=== PATIENT | female | born 1950 | race Caucasian/White ===

== ENCOUNTER → 2024-02-14 12:33 | Outpatient (REF) | payer MEDICARE, BC, SELFPAY | LOC: SDSPAT 12:33 | PROVIDERS: ATTENDING PHYSICIAN Urology; FAMILY PHYSICIAN Family Medicine | DX: N39.41 Urge incontinence (principal); I48.0 Paroxysmal atrial fibrillation | CPT/HCPCS: 36415; 81003; 81015; 85025; 85610; 87077; 87086; 87186; 93005 ==

== ENCOUNTER 2024-02-20 06:36 | Day surgery (SDC) | payer MEDICARE, BC, SELFPAY ==
[2024-02-14 09:51] LABS: Urine Albumin Negative (Neg - Trace); Urine Bilirubin Negative (Negative); Urine Character Clear (Clear); Urine Color Yellow; Urine Glucose Negative (Negative); Urine Ketone Negative (Negative); Urine Leukocyte 2+ (Negative); Urine Nitrite Positive (Negative); Urine Occult Blood 1+ (Negative); Urine Specific Gravity 1.005 (<1.030); Urine Urobilinogen Negative (Neg - 1+)
[2024-02-14 09:54] LABS: % Basophils 0.7 % (0-2); % Eosinophils 3.1 % (0-6); % Immature Granulocytes 0.1 % (0-0.5); % Monocytes 7.7 % (1.7-9.3); % Neutrophils 61.4 % (42.2-75.2); Absolute Basophils 0.1 10^3/uL (0-0.2); Absolute Eosinophils 0.2 10^3/uL (0-0.7); Absolute Monocytes 0.6 10^3/uL (0.1-0.6); Absolute Neutrophils 4.6 10^3/uL (1.4-6.5); Hematocrit 41.3 % (37.0-47.0); Hemoglobin 13.4 g/dL (12.0-16.0); Mean Corp Hgb Conc. 32.4 g/dL (33.0-37.0); Mean Corpuscular Hgb 30.6 pg (27.0-31.0); Mean Corpuscular Volume 94.3 fL (81.0-99.0); Mean Platelet Volume 10.2 fL (7.4-10.4); Nucleated Red Blood Cells % 0 %; Platelet Count 286 10^3/uL (130-400); Red Blood Cell Count 4.38 10^6/uL (4.20-5.40); Red Cell Dist. Width 13.8 % (11.5-14.5); White Blood Cell Count 7.4 10^3/uL (4.8-10.8)
[2024-02-14 09:55] LABS: INR 1.05; PT 13.5 Sec (11.4-14.6)
[2024-02-14 10:46] LABS: Urine Bacteria Many (Negative); Urine White Cell 70-80 /HPF (0-5)
--- NOTE | 2024-02-15 14:04 | PTCARENOTE ---
Abnormal urinalysis and urine culture collected on 02/14/24; Shital at 's office was notified.
[2024-02-20] VITALS (25 sets, daily range): BP systolic 93–133; BP diastolic 47–81; BMI 33.9
[2024-02-20 08:34] LABS: Urine Albumin Negative (Neg - Trace); Urine Bilirubin Negative (Negative); Urine Character Clear (Clear); Urine Color Yellow; Urine Glucose Negative (Negative); Urine Ketone Negative (Negative); Urine Leukocyte 1+ (Negative); Urine Nitrite Negative (Negative); Urine Occult Blood Negative (Negative); Urine Urobilinogen Negative (Neg - 1+)
[2024-02-20] MEDS: NORMOSOL-R 1000 IV (08:52)
[2024-02-20 09:04] LABS: Urine Bacteria Few (Negative); Urine Squamous Cell 16-20 /LPF (Few); Urine White Cell 16-20 /HPF (0-5)
[2024-02-20 09:05] LABS: Blood Urea Nitrogen 6 mg/dl (7-17); Calcium 9.4 mg/dl (8.4-10.2); Carbon Dioxide 30 mmol/L (22-30); Chloride 101 mmol/L (98-107); Estimated Creatinine Clearance 89 ml/min; Glucose 145 mg/dl (70-99); Potassium 4.3 mmol/L (3.5-5.1); Sodium 137 mmol/L (135-145); eGFR > 60.00
--- NOTE | 2024-02-20 12:42 | SUR.PHASEI ---
Lightly dozing, vss, sara ice chips well Dandy out lunch relief
[2024-02-20] MEDS: TORADOL 15 MG IV (15:11)
--- NOTE | 2024-02-20 15:52 | HPS.HSE ---
Addendum entered and electronically signed by Markos Burns MD 02/20/24 19:55:
I personally performed a history and physical exam of the patient and discussed management with the resident. I reviewed the resident's note and agree with the documented findings and plan of care HPI/CC.
Asked to review for post op hypoxia.
Pt without distress nor she complains of SOB or CP. Her only symptoms is LARSON- bifrontal with some photophobia .Hx of remote Migraine LARSON tx symptomatically by PCP. Didnt have a flare in recent years.
Denies hx of COPD /Asthma . Was presribed inhaler in remote past during a respiratory illness. Hx of sleep apnea and was using CPAP but not muche helpful so returned it ( this was few years ago). According to she does sleep well at night and
takes naps during day time.
Remote smoker. No CAD/CHF hx.Some LE edema lately.
Hypoxia readings noted/HD stable.
Chest clear anteriorly;s1+s2 regular
BLLE edema with venous stasis changes.No acute cellulitis.
No JVD.
Asymptomatic hypoxia with out undue distress.
CXR showed low lung volumes with crowded BV markings which radiologically raises suspicion for pulm edema but pt asymptomatic. EKG without acute changes, Trop neg, and BNP normal. Doubt CHF. Will try a trail of lasix.
Check nocturnal continous pulse ox. Add ICS.
Will admit ovenight for observation.
DW and SM[employer] and went over the working dx and tx plan.
Original Note:
Family Physician
<Marshal West MD, Resident - Last Filed: 02/20/24 16:10>
-
Family Physician: Bill Rouse
Chief Complaint
<Marshal West MD, Resident - Last Filed: 02/20/24 16:10>
-
Post-op hypoxia
History of Present Illness
Thea Сергей, age 73, had a sacral interstim implanted earlier this morning. She was noted to be hypoxic in the PACU, with O2 stats in 80s on room air. Improved with O2 via NS and the hospitalist service was consulted for further evaluation. Will
keep her observation overnight.
Medical History
<Marshal West MD, Resident - Last Filed: 02/20/24 16:10>
Past Medical History
Past Medical History: Reports Other (sleep apnea, asthma, anxiety, insomnia, neuropathy, incontinence, seizure disorder, fatty liver, depression, migraines, anemia, hyperlipidemia)
Past Surgical History: Reports Other (hysterectomy, lumpectomy (benign), esophageal dilatation, cataracts)
Social History
Tobacco: Former Smoker
Alcohol: Occasional
Drug: None
Family History
Family History: Not pertinent
Allergies / Home Medications
Allergies reflects when Allergies were last updated in [facility].
Home Medications with original date entered in [facility]
Allergy/Medication List:
Allergies
Allergy/AdvReac Type Severity Reaction Status Date / Time
No Known Allergies Allergy Verified 02/20/24 08:27
Home Medications
alprazolam 2 mg tablet 2 mg PO TID 02/15/24
gabapentin 100 mg capsule 100 mg PO TID 02/15/24
quetiapine 25 mg tablet 25 mg PO TID 02/15/24
simvastatin 10 mg tablet 10 mg PO HS 02/15/24
tamsulosin 0.4 mg capsule 0.4 mg PO DAILY 02/15/24
vibegron 75 mg tablet (Gemtesa) 75 mg PO DAILY 02/15/24
vit C 250 mg-vit E 90 mg-zinc 40 mg-copper 1 [id number] capsule (PreserVision AREDS-2) 1 tab PO AMHS 02/15/24
vortioxetine 20 mg tablet (Trintellix) 20 mg PO DAILY 02/15/24
zolpidem 10 mg tablet 10 mg PO HS 02/15/24
Review of Systems
<Marshal West MD, Resident - Last Filed: 02/20/24 16:10>
-
History Source: Patient
Constitutional: Reports Other (groggy)
EENT: Reports No Symptoms
Respiratory: Reports No Symptoms
Cardiac: Reports No Symptoms
Abdomen/GI: Reports No Symptoms
: Reports No Symptoms
Musculoskeletal: Reports No Symptoms
Skin: Reports No Symptoms
Neurological: Reports No Symptoms
Endocrine: Reports No Symptoms
Hematologic/Lymphatic: Reports No Symptoms
Psych: Reports No Symptoms
Physical Exam
<Marshal West MD, Resident - Last Filed: 02/20/24 16:10>
Vital Signs
Vital Signs
Temp Pulse Resp BP Pulse Ox
97.6 F 90 12 104/62 97
02/20/24 11:05 02/20/24 15:30 02/20/24 15:30 02/20/24 15:30 02/20/24 15:30
Physical Exam
General: No Apparent Distress and Comfortable
HEENT: NormoCephalic, Anicteric, Moist mucous membranes and No Ptosis
Respiratory: Clear and Non Labored Respirations
Cardiac: S1/S2 and Regular Rhythm
GI: Soft, Non Tender and Non Distended
Genito-urinary: No costovertebral tender
Musculoskeletal: No Clubbing, No Cyanosis and No Edema
Skin: Warm, Dry and IV/Catheter Site
Neuro: Awake, Alert, Oriented and Nonfocal/grossly intact
Hematologic/Lymphatic: No Lymphadenopathy
Psych: Calm
Laboratory Results
<Marshal West MD, Resident - Last Filed: 02/20/24 16:10>
-
02/14/24 09:03
02/20/24 08:42
Laboratory Results
PT 13.5 Sec (11.4-14.6) 02/14/24 09:03
INR 1.05 02/14/24 09:03
Impression/Plan
<Marshal West MD, Resident - Last Filed: 02/20/24 16:10>
-
Impression and plan
Acute respiratory insufficiency
- O2 stats normal on 2L via NS.
- CXR shows suspected element of pulmonary edema; will check BNP.
- Etiology unclear at this time.
- Could be related to untreated sleep apnea, post-anesthesia respiratory depression, underlying asthma/COPD.
- Will observe overnight.
- Incentive spirometry.
- Wean O2 as tolerated.
Headache
Suspected history of migraines
- Never formally diagnosed or treated.
- Will try ketorolac once.
Anxiety
Depression
Insomnia
- Continue medications.
Neuropathy
- Continue gabapentin.
Hyperlipidemia
- Continue simvastatin/
Urinary retention
Overflow incontinence
Urge incontinence
Stress incontinence
- Continue medications.
DVT prophylaxis
- SCD.
Code status
- Full.
<Markos Burns MD - Last Filed: 02/20/24 19:47>
-
Impression and plan
Acute hypoxic respiratory insufficiency
- O2 stats normal on 2L via NS.
- CXR shows suspected element of pulmonary edema; will check BNP,EKG and troponin. Will give a trail of Lasix.
- Etiology unclear at this time.
- Could be related to untreated sleep apnea, post-anesthesia respiratory depression. Check continous pulse at HS.
- Will observe overnight.
- Incentive spirometry.
- Wean O2 as tolerated.
Headache
Suspected history of migraines
- Never formally diagnosed or treated.
- Will try ketorolac once.
- Surgeon notified about LARSON in case related to Interstim insertion.
Anxiety
Depression
Insomnia
- Continue medications.
Neuropathy
- Continue gabapentin.
Hyperlipidemia
- Continue simvastatin/
Urinary incontinence
- Continue medications.
DVT prophylaxis
- SCD.
Code status
- Full.
--- NOTE | 2024-02-20 18:15 | PTCARENOTE ---
1744: Patient arrived to 2S. Full head to toe assessment completed. R lower back dressing clean dry and intact. Generalized rash noted that patient stated 'has been there for a year'. Patient wearing 4L NC with SpO2 greater than 92%. Bed alarm in
place. Call griffith within reach and bed in lowest position.
[2024-02-20] MEDS: NEURONTIN 100 MG PO ×2 (18:55→21:48)
[2024-02-20] MEDS: SEROQUEL 25 MG PO ×2 (18:55→21:44)
[2024-02-20] MEDS: LASIX 40 MG IV (18:57)
[2024-02-20 19:30] LABS: NT-proBNP 450 pg/ml; Troponin I < 0.012 ng/ml
[2024-02-20] MEDS: LIPITOR 10 MG PO (21:44)
[2024-02-20] MEDS: OCUVITE SOFTGEL 1 CAP PO (21:44)
[2024-02-20] MEDS: XANAX 2 MG PO (21:46)
--- NOTE | 2024-02-21 02:15 | PTCARENOTE ---
Upon hourly rounds at approximately 0215, pt did not have nasal cannula on. Pulse ox sat in 70's. Oxygen reapplied and increased from 4L to 5L. Pt appeared anxious and increased confusion. Reoriented pt several times, within 15 minutes pt sat in the
90's and back on 4L. Will continue to monitor.
[2024-02-21 04:03] VITALS: BP 113/57
--- NOTE | 2024-02-21 07:39 | W.PN.HOSP.TC ---
Addendum entered and electronically signed by Markos Burns MD 02/21/24 16:12:
I saw and evaluated the patient. I reviewed the resident�s note and agree with findings and plan as documented in the resident�s note.
Patient with resolved hypoxia.
She is alert and oriented to place person day and the month. Apparently this morning when she got up she was little confused but that resolved very quickly. She denies any shortness of breath, chest pain, or cough.
Chest is clear to auscultation.
S1 plus S2 are regular
Lab data and imaging data reviewed.
Abdominal x-ray which was portable suggested possible pulmonary edema but clinically not correlating. Chest was clear to auscultation. BNP was normal. Troponins were negative. EKG was negative as well. No significant wt gain since recent 02/16. No
JVD .LE edema with mild chronic stasis changes was noted.
With quick resolution of hypoxia suspect this may be more post of anesthesia effects on top of possible sleep apnea. She has no nocturnal significant hypoxemia regarding to the history she has some sleep disturbance at night and daytime sleepiness
and fatigue. She has not been using her CPAP for a while now. Advised to return to her sleep doctor now and reassess for role of reinitiating CPAP.
Also advised to reeval the need of such high doses of Benzos- she apparently been taking that way from many years now.
DC home on her prior meds.
Original Note:
Today's Communication/Plan
-
- Anticipated discharge today.
Assessment / Plan
Assessment / Plan
Assessment
Thea Rushing, age 73, had a sacral interstim implanted earlier this morning. She was noted to be hypoxic in the PACU, with O2 stats in 80s on room air. Improved with O2 via NS and the hospitalist service was consulted for further evaluation. Will
keep her observation overnight.
Impression and plan
Acute respiratory insufficiency
- CXR shows suspected element of pulmonary edema.
- BNP, ECG and troponin negative.
- Etiology unclear at this time; unlikely that this is HF.
- Likely related to sleep apnea and post-anesthesia respiratory depression.
- Nocturnal O2 stable.
- Incentive spirometry.
- Weaned off O2; 95+ on RA.
Headache
Suspected history of migraines
- Never formally diagnosed or treated.
- Will try ketorolac once.
- Improved today.
Anxiety
Depression
Insomnia
- Continue medications.
Neuropathy
- Continue gabapentin.
Hyperlipidemia
- Continue simvastatin/
Urinary retention
Overflow incontinence
Urge incontinence
Stress incontinence
- Continue medications.
DVT prophylaxis
- SCD.
Code status
- Full.
Anticipated Discharge: Today
Subjective/Interval History
-
Date of Service: February 21, 2024
Objective Data
-
Labs:
Laboratory Results
02/21/24
06:00
WBC Pending
Hgb Pending
Hct Pending
Plt Count Pending
Sodium Pending
Potassium Pending
Chloride Pending
Carbon Dioxide Pending
BUN Pending
Creatinine Pending
Glucose Pending
Calcium Pending
Vital Signs:
Vital Signs
Temp Pulse Resp BP Pulse Ox
98.4 F 92 18 113/57 92
02/21/24 04:03 02/21/24 04:03 02/21/24 04:03 02/21/24 04:03 02/21/24 04:03
I&O
02/20/24 02/21/24 02/22/24
06:59 06:59 06:59
Intake Total 720 / 720
Balance 720 / 720
Review of Systems
-
History Source: Patient
Constitutional: Reports Sleep Disturbance
EENT: Reports No Symptoms Reported
Respiratory: Reports No Symptoms
Cardiac: Reports No Symptoms
Abdomen/GI: Reports No Symptoms
Breast: Reports No Symptoms
Genitourinary: Reports No Symptoms
Musculoskeletal: Reports No Symptoms
Skin: Reports No Symptoms
Neuro: Reports No Symptoms
Endocrine: Reports No Symptoms
Hematologic / Lymphatic: Reports No Symptoms
Allergy / Immunology: Reports No Symptoms
Physical Exam
-
General: No Apparent Distress and Comfortable
HEENT: Normocephalic, Atraumatic, Moist Mucous Membranes and Anicteric
Respiratory: Clear to Auscultation and Non Labored Respirations
Cardiac: Regular Rhythm and S1/S2
GI: Soft, Nontender and Nondistended
Genito-urinary: No Costovertebral Tender
Musculoskeletal: No Clubbing, No Cyanosis and No Edema
Skin: Warm, Dry and IV Access / Catheter Site
Neuro: Awake, Alert, Oriented and Nonfocal/Grossly Intact
Hematologic / Lymphatic: No Lymphadenopathy
Psych: Calm
[2024-02-21 07:41] VITALS: BP 109/63
[2024-02-21] MEDS: FLOMAX 0.4 MG PO (09:04)
[2024-02-21] MEDS: SEROQUEL 25 MG PO (09:04)
[2024-02-21] MEDS: NEURONTIN 100 MG PO (09:04)
[2024-02-21] MEDS: OCUVITE SOFTGEL 1 CAP PO (09:04)
[2024-02-21] MEDS: DETROL LA 4 MG PO (09:04)
[2024-02-21] MEDS: XANAX 2 MG PO (09:04)
[2024-02-21 09:09] LABS: % Basophils 0.9 % (0-2); % Eosinophils 3.8 % (0-6); % Immature Granulocytes 0.5 % (0-0.5); % Lymphocytes 23.8 % (20.5-51.1); % Monocytes 8.9 % (1.7-9.3); % Neutrophils 62.1 % (42.2-75.2); Absolute Basophils 0.1 10^3/uL (0-0.2); Absolute Eosinophils 0.3 10^3/uL (0-0.7); Absolute Lymphocytes 1.6 10^3/uL (1.2-3.4); Absolute Monocytes 0.6 10^3/uL (0.1-0.6); Absolute Neutrophils 4.1 10^3/uL (1.4-6.5); Hematocrit 39.4 % (37.0-47.0); Hemoglobin 12.5 g/dL (12.0-16.0); Mean Corp Hgb Conc. 31.7 g/dL (33.0-37.0); Mean Corpuscular Hgb 30.7 pg (27.0-31.0); Mean Corpuscular Volume 96.8 fL (81.0-99.0); Mean Platelet Volume 9.7 fL (7.4-10.4); Nucleated Red Blood Cells % 0 %; Platelet Count 229 10^3/uL (130-400); Red Blood Cell Count 4.07 10^6/uL (4.20-5.40); Red Cell Dist. Width 14.2 % (11.5-14.5); White Blood Cell Count 6.6 10^3/uL (4.8-10.8)
[2024-02-21 10:27] LABS: Blood Urea Nitrogen 7 mg/dl (7-17); Calcium 8.9 mg/dl (8.4-10.2); Carbon Dioxide 35 mmol/L (22-30); Chloride 100 mmol/L (98-107); Estimated Creatinine Clearance 89 ml/min; Glucose 130 mg/dl (70-99); Potassium 4.1 mmol/L (3.5-5.1); Sodium 139 mmol/L (135-145); eGFR > 60.00
--- NOTE | 2024-02-21 10:47 | CM ---
Addendum entered by Mariposa Sands RN 02/21/24 14:52:
Reviewed PT/OT recommendations of home PT/OT. Patient and spouse want to wait on having that. Discussed option of seeing PCP and having them order if needed. Patient in agreement with waiting to speak with PCP.
Original Note:
Reviewed the chart notes and spoke with the patient at the bedside. Patient currently on supplemental O2. The patient resides with her spouse in a split level home with a total of two steps to enter. The patient has in the home a cane and rolling
walker if needed. The patient reports no VN or SNF in the past. [facility] CM continues to be available to patient/family and is monitoring medical plan for needs at discharge.
Plan: Discharge to home when medically stable.
[2024-02-21 11:23] VITALS: BP 113/66
--- NOTE | 2024-02-21 13:24 | W.DCSUMMARY ---
Documented by User: Marshal West MD, Resident 02/21/24 13:44
Discharge Summary
Discharge Data
Date of Admission: 02/20/24
Date of Discharge: 02/21/24
-
Pending Results: No
Hospital Course
Primary discharge diagnosis
* Acute respiratory insufficiency
Secondary discharge diagnoses
- Post-anesthesia respiratory depression
- Sleep apnea, unspecified
- Headache disorder
- Major depression
- Generalized anxiety disorder
- Chronic insomnia
- Peripheral neuropathy
- Overflow incontinence
- Urge incontinence
- Stress incontinence
Hospital course
Thea Rushing, age 73, had a sacral interstim implanted on 02-20-24. She was noted to be hypoxic in the PACU, with O2 stats in 80s on room air. Improved with O2 via NS. Chest x-ray was suspicious for possible pulmonary edema and she received 1 dose of
furosemide. BNP, troponin, ECG and other lab work were unremarkable. She remained asymptomatic throughout this admission. Nocturnal O2 assessment was reassuring. She was weaned off the oxygen with saturation within normal limits in the morning of
02-21-24. On the day of the discharge, her vitals were within normal limits, blood work unremarkable, physical exam normal and she remained asymptomatic. Recommended outpatient evaluation for known sleep apnea; has not used a CPAP in years.
Follow-up with urology and primary as well.
Discharge Plan
-
Patient Disposition: Home (Routine Discharge)
Discharge Diagnosis/Procedures: Acute respiratory insufficiency
Condition: Good
Diet: As tolerated, Low Cholesterol and Low Sodium
Activity: With assistance and As tolerated
Driving Restrictions: As prior to admission
Bathing Restrictions: None
Blood Work: BMP in 1 week
Other Services: VN
Instructions: Sleep apnea in adults
Referrals:
Ama Meehan DO [Active] - in two weeks
Bill Rouse MD [Family Provider] -
Nikunj Alves MD [Active] - in one month (untreated sleep apnea)
Prescriptions:
Continued
quetiapine 25 mg Tablet
25 mg PO TID
simvastatin 10 mg Tablet
10 mg PO HS
tamsulosin 0.4 mg Capsule
0.4 mg PO DAILY
alprazolam 2 mg Tablet
2 mg PO TID
gabapentin 100 mg Capsule
100 mg PO TID
zolpidem 10 mg Tablet
10 mg PO HS
Trintellix 20 mg Tablet
20 mg PO DAILY
PreserVision AREDS-2 250-90-40-1 mg Capsule
1 tab PO AMHS
Gemtesa 75 mg Tablet
75 mg PO DAILY
Discharge Orders:
Discharge Patient (As Directed); Ordered 02/21/24
Ordered By: Marshal West
Discharge Date and Time
Discharge Date/Time: 02/21/24 15:48
Print Language: SLOVAK

Documented by User: Markos Burns MD 02/21/24 16:13
Discharge Summary
Discharge Data
Date of Admission: 02/20/24
Date of Discharge: 02/21/24
Hospital Course
Primary discharge diagnosis
* Acute respiratory insufficiency
Secondary discharge diagnoses
- Post-anesthesia respiratory depression
- Sleep apnea, unspecified
- Headache disorder
- Major depression
- Generalized anxiety disorder
- Chronic insomnia
- Peripheral neuropathy
- Overflow incontinence
- Urge incontinence
- Stress incontinence
Hospital course
Thea Rushing, age 73, had a sacral interstim implanted on 02-20-24. She was noted to be hypoxic in the PACU, with O2 stats in 80s on room air. Improved with O2 via NS. Chest x-ray was suspicious for possible pulmonary edema and she received 1 dose of
furosemide. BNP, troponin, ECG and other lab work were unremarkable. She remained asymptomatic throughout this admission. Nocturnal O2 assessment was reassuring. She was weaned off the oxygen with saturation within normal limits in the morning of
02-21-24. On the day of the discharge, her vitals were within normal limits, blood work unremarkable, physical exam normal and she remained asymptomatic. Recommended outpatient evaluation for known sleep apnea; has not used a CPAP in years.
Follow-up with pulmonary and primary as well.
Discharge Plan
-
Patient Disposition: Home (Routine Discharge)
Discharge Diagnosis/Procedures: Acute respiratory insufficiency
Condition: Good
Diet: As tolerated, Low Cholesterol and Low Sodium
Activity: With assistance and As tolerated
Driving Restrictions: As prior to admission
Bathing Restrictions: None
Blood Work: BMP in 1 week
Other Services: VN
Instructions: Sleep apnea in adults
Referrals:
Ama Meehan DO [Active] - in two weeks
Bill Rouse MD [Family Provider] -
Nikunj Alves MD [Active] - in one month (untreated sleep apnea)
Prescriptions:
Continued
quetiapine 25 mg Tablet
25 mg PO TID
simvastatin 10 mg Tablet
10 mg PO HS
tamsulosin 0.4 mg Capsule
0.4 mg PO DAILY
alprazolam 2 mg Tablet
2 mg PO TID
gabapentin 100 mg Capsule
100 mg PO TID
zolpidem 10 mg Tablet
10 mg PO HS
Trintellix 20 mg Tablet
20 mg PO DAILY
PreserVision AREDS-2 250-90-40-1 mg Capsule
1 tab PO AMHS
Gemtesa 75 mg Tablet
75 mg PO DAILY
Discharge Orders:
Discharge Patient (As Directed); Ordered 02/21/24
Ordered By: Marsahl West
Discharge Date and Time
Discharge Date/Time: 02/21/24 15:48
Print Language: SLOV[place]
[2024-02-21 14:41] VITALS: BP 110/70; PULSE 102; O2SAT 92
[2024-02-21 15:03] VITALS: BP 110/70; PULSE 92; O2SAT 100
== END 2024-02-21 15:48 | disposition home or self-care (01) ==
LOC: SDS 06:36
PROVIDERS: Student in an Organized Health Care Education/Training Program; ATTENDING PHYSICIAN Urology; FAMILY PHYSICIAN Family Medicine
DX: N39.490 Overflow incontinence (principal); N39.41 Urge incontinence; R33.9 Retention of urine, unspecified; N39.3 Stress incontinence (female) (male); Z79.899 Other long term (current) drug therapy; R09.02 Hypoxemia; G47.30 Sleep apnea, unspecified; Z87.891 Personal history of nicotine dependence; J45.909 Unspecified asthma, uncomplicated; G40.909 Epilepsy, unspecified, not intractable, without status epilepticus; K76.0 Fatty (change of) liver, not elsewhere classified; E78.5 Hyperlipidemia, unspecified; F32.9 Major depressive disorder, single episode, unspecified; F41.1 Generalized anxiety disorder; G62.9 Polyneuropathy, unspecified; R51.9 Headache, unspecified; F51.05 Insomnia due to other mental disorder; F51.04 Psychophysiologic insomnia
CPT/HCPCS: 64590; 64561; 36415; 71045; 72170; 76000; 80048; 81003; 81015; 83880; 84484; 85025; 85610; 87077; 87086; 87186; 93005; 94762; 97116; 97162; 97166; C1767; C1778; C1787

== ENCOUNTER → 2024-04-23 12:52 | Outpatient (REF) | payer MEDICARE, BC, SELFPAY | LOC: HWRAD 12:52 | PROVIDERS: ATTENDING PHYSICIAN Urology; FAMILY PHYSICIAN Family Medicine | DX: R33.9 Retention of urine, unspecified (principal) | CPT/HCPCS: 76770 ==

== ENCOUNTER 2024-07-04 05:06 | Inpatient (IN) | payer MEDICARE, BC, SELFPAY ==
[2024-07-03 23:14] VITALS: BP 172/76; BMI 29.6
[2024-07-03 23:18] VITALS: BP 172/76
[2024-07-04] VITALS (17 sets, daily range): BP systolic 107–172; BP diastolic 53–106; BMI 29.4
--- NOTE | 2024-07-04 00:32 | EDRN ---
RN notes pt. appears to have bitten her tongue [employer].
[2024-07-04 00:37] LABS: % Basophils 0.2 % (0-2); % Immature Granulocytes 1.8 % (0-0.5); % Lymphocytes 9.2 % (20.5-51.1); % Monocytes 7.9 % (1.7-9.3); % Neutrophils 80.9 % (42.2-75.2); Absolute Immature Granulocytes 0.2 10^3/uL (0-0.05); Absolute Lymphocytes 1.2 10^3/uL (1.2-3.4); Absolute Neutrophils 10.6 10^3/uL (1.4-6.5); Hematocrit 41.2 % (37.0-47.0); Hemoglobin 13.9 g/dL (12.0-16.0); Mean Corp Hgb Conc. 33.7 g/dL (33.0-37.0); Mean Corpuscular Hgb 29.4 pg (27.0-31.0); Mean Corpuscular Volume 87.1 fL (81.0-99.0); Mean Platelet Volume 9.9 fL (7.4-10.4); Nucleated Red Blood Cells % 0 %; Platelet Count 287 10^3/uL (130-400); Red Blood Cell Count 4.73 10^6/uL (4.20-5.40); Red Cell Dist. Width 14.2 % (11.5-14.5); Urine Albumin Trace (Neg - Trace); Urine Bilirubin Negative (Negative); Urine Character Slightly Cloudy (Clear); Urine Color Yellow; Urine Glucose Negative (Negative); Urine Ketone 1+ (Negative); Urine Leukocyte Trace (Negative); Urine Nitrite Negative (Negative); Urine Occult Blood Negative (Negative); Urine Urobilinogen Negative (Neg - 1+); Urine pH 6.5 (5.0-9.0); White Blood Cell Count 13.1 10^3/uL (4.8-10.8)
[2024-07-04 00:49] LABS: APTT 23.8 Sec (23.4-35.0); INR 1.24; PT 15.9 Sec (11.4-14.6)
[2024-07-04 00:50] LABS: Amphetamines Negative (Negative); Barbiturates Negative (Negative); Benzodiazepines Negative (Negative); Buprenorphine Negative (Negative); Cocaine Negative (Negative); Marijuana Positive (Negative); Methadone Negative (Negative); Methamphetamines Negative (Negative); Opiates Negative (Negative); Phencyclidine Negative (Negative); Tricyclic Antidepressants Negative (Negative)
[2024-07-04 00:58] LABS: ALT (SGPT) 24 U/L (0-35); AST (SGOT) 38 U/L (14-36); Acetaminophen < 10 ug/ml (10-30); Albumin 4.2 g/dl (3.5-5.0); Alkaline Phosphatase 65 U/L (38-126); Blood Urea Nitrogen 16 mg/dl (7-17); Calcium 9.3 mg/dl (8.4-10.2); Carbon Dioxide 27 mmol/L (22-30); Chloride 96 mmol/L (98-107); Estimated Creatinine Clearance 83 ml/min; Glucose 156 mg/dl (70-99); Potassium 2.8 mmol/L (3.5-5.1); Salicylate < 1.0 mg/dl (2.0-20.0); Sodium 134 mmol/L (135-145); Total Bilirubin 1.2 mg/dl (0.2-1.3); Urine Bacteria Many (Negative); eGFR > 60.00
[2024-07-04 01:03] LABS: Alcohol None Detected
--- NOTE | 2024-07-04 01:06 | ED.GENMED ---
History of Present Illness
General
Chief Complaint: Change in Mental Status
Time Seen by Provider: 07/03/24 23:22
History of Present Illness
History of Present Illness:
73-year-old female brought in by EMS for change in mental status. called EMS multiple times today for patient's confusion. They went out to the house earlier in evening and patient was not transported to the hospital due to normal mental
status. Patient does have a history of alcohol abuse. Her last drink was last week. states that her symptoms began on and progressively worsened. Tonight the symptoms became very severe so he called 911. Has not drank alcohol
since or Tuesday. Patient has had seizures due in the past. EMS called for medical command. I picked up the phone. Patient was agitated and unwilling to come to the hospital. Was incoherent and not answering questions appropriately.
wanted her to come to the hospital. She did get Ativan for agitation. She arrived cooperative and alert. She was confused. CT scan were negative for any acute processes. Stroke alert was called initially. Dr. Britt was contacted.
She did not feel that TNKase was warranted given the prolonged duration of symptoms.
If applicable-neuro sx onset
Date of onset of symptoms: 06/28/24
Date last time pt seen normal: 06/27/24
Review of Systems
Review of Systems
Allergies reviewed?: Yes
Unable to obtain full review of systems at this time due to: other (Clinical State)
Other source history: family and ambulance crew
All Other Systems: Not applicable
Constitutional: Reports no symptoms
EENT: Reports no symptoms
Respiratory: Reports no symptoms
Cardiac: Reports no symptoms
ABD/GI: Reports no symptoms
: Reports no symptoms
Musculoskeletal: Reports no symptoms
Skin: Reports no symptoms
Neurological: Reports dizzy, headache and weakness
Endocrine: Reports no symptoms
Hematologic/Lymphatic: Reports no symptoms
Psychiatric: Reports anxiety
Phy Exam
General Physical Exam
General Presentation: moderate distress
General age: appears older than age
General Skin: warm and dry
General Habitus: elderly and frail
General Mental: appears intoxicated and confused
General Hydration: appears well hydrated
ENT Exam
ENT Exam: EOMI, pharynx normal, neck supple and normocephalic
Eye Exam
Eye Exam: PERRL, cornea clear and conjunctiva normal
Cardiovascular Exam
Cardiovascular Exam: regular rate/rhythm, no edema, no murmur and normal peripheral pulses
Pulmonary Exam
Pulmonary Exam: lungs clear, no respiratory distress, no rales, no crackles, no rhonchi, no stridor, no wheezing and no cough
Gastrointestinal Exam
Gastrointestinal Exam: normal bowel sounds, non tender, soft, no organomegaly, no pulsatile mass and non distended
Neurological Exam
Neurological Exam: confused and slurred speech
NIH Stroke Score
Level of Consciousness: 1 - Arousable
LOC questions: 1-Answers one correctly
LOC Commands: 0-Performs both correctly
Best Gaze: 0-Normal
Visual Anne: 0=Normal, no visual loss
Facial palsy: 0=Normal, symmetrical
Motor - Right Arm: 0=No drift 10 seconds
Motor - Left Arm: 0=No drift 10 seconds
Motor - Right Le-No drift 5 seconds
Motor - Left Le-No drift 5 seconds
Limb Ataxia: 0-Absent
Sensation: 0-Normal
Best Language: 1-Mild aphasia
Dysarthria: 1-Mild slurring
Extinction and Inattention: 0-No abnormality
Total Score:: 4
Musculoskeletal Exam
Musculoskeletal Exam: full ROM and no edema
Skin Exam
Skin Exam: normal color, warm/dry, no rash and no petechia
Psychiatric Exam
Psychiatric Exam: labile
Scores
Withdrawal Assessment of Alcohol
Withdrawal Assessment Completed?: Yes
Nausea and Vomiting: Mild nausea with no vomiting
Tactile Disturbances: Moderately severe hallucinations
Tremor: Not visible, but can be felt fingertip to fingertip
Auditory Disturbances: Not present
Paroxysmal Sweats: Beads of sweat obvious on forehead
Visual Disturbances: Not present
Anxiety: Moderately anxious, or guarded, so anxiety is inferred
Headache, Fullness in Head: Not present
Agitation: Moderately fidgety and restless
Orientation and clouding of sensorium: Cannot do serial additions or is uncertain about date
Total CIWA Score: 19
Alcohol Withdrawal Medication Recommendation: Equal to MSAS Score 8-11. Lorazepam 1-2mg IV NOW & re-assess q1hr
Course
Orders/Labs/Results
Orders:
Orders
07/03/24 23:23
CT Facial Bones W/o Iv Contras Urgent
Comment:
Reason For Exam: bruising
CT HEAD STROKE ALERT W/o Cont Urgent
Comment:
Reason For Exam: confusion, slurring, head trauma, pos. etoh w/d
CT HEAD/NECK ANG STROKE ALERT Urgent
Comment:
Reason For Exam: confusion, slurring, head trauma, pos. etoh w/d
Bedside Glucose- Treatment ONCE
Cardiac Monitoring- Treatment ONCE
Acetaminophen Urgent
Alcohol Urgent
Complete Blood Count/With Diff Urgent
Comprehensive Metabolic Panel Urgent
Erythrocyte Sed Rate Urgent
PTT Urgent
Prothrombin Time Urgent
Salicylate Urgent
Troponin I Urgent
07/03/24 23:24
Electrocardiogram (*1) Stat
Reason for Study: Other
Other Reason for Exam: neuro symptoms
EKG- Treatment ONCE
07/03/24 23:27
Urinalysis Reflex To Culture Urgent
Date Specimen was Collected: 07/04/24
Time Specimen was Collected: 00:12
Urine Drug Abuse Screen Urgent
Date Specimen was Collected: 07/04/24
Time Specimen was Collected: 00:12
07/04/24 00:14
Urine Microscopic Reflex Cult Urgent
Urine Culture Urgent
[place] Source: U
Specimen Description:
Date Specimen was Collected: 07/04/24
Time Specimen was Collected: 00:12
07/04/24 01:04
0.9% Sodium Chloride 1000 ml [Nss] 1,000 ml Mvi, Adult [Multivitamin] 10 ml Thiamine Injection 100 mg IV 250 mls/hr
07/04/24 01:27
Lorazepam [Ativan] 2 mg IV NOW STA
07/04/24 02:00
0.9% Sodium Chloride 1000 ml [Nss] 1,000 ml Mvi, Adult [Multivitamin] 10 ml Thiamine Injection 100 mg IV 250 mls/hr
07/04/24 02:38
Piperacillin/Tazo 4.5 Gram [Zosyn] 4.5 gram in 100 ml IV NOW
07/04/24 02:39
0.9% Sodium Chloride 1000 ml [Nss] 1,000 ml IV BOLUS
07/04/24 02:59
ED Special Safety Observation ONCE
Observation level: Intermittent Observation
Comment: Pt. requires truck safety inspector, as is not redirectable and pulls at IVs/Cardiac monitoring,
which is necessary for pt.'s care.
07/04/24 03:34
Lorazepam [Ativan] 2 mg .ROUTE .STK-MED ONE
07/04/24 03:39
Lorazepam [Ativan] 2 mg IV NOW STA
07/04/24 04:02
Lactic Acid Q4H
Comment: ON ICE, CANCEL 2ND ORDER IF FIRST LACTIC ACID LEVEL <2
Blood Culture Urgent
YU[place] Source: Blood/Venous
Specimen Description:
07/04/24 04:04
Acetaminophen [Tylenol] 1,000 mg PO NOW STA
07/04/24 04:21
Admit/Transfer Patient As Directed
Co-Sign Provider:
Level of Care: Inpatient admission
Assign to:: IMU- Intermediate Care
Physician / Group: Stew
Diagnosis: Alcohol Withdrawal / Seizures
Reason for Hospitalization: Alcohol Withdrawal / Seizures
Expected length of stay greater than two midnights?: Yes
ELOS- Estimated Length of Stay in days: 3
I certify the patient meets the requirements for IP care: Yes
PRN Pain Medication Management As Directed
May give lesser potent ordered pain med per pt: Yes
preference::
Protocol:: Medication orders for pain may be administered in a
manner that supports deferring to patient preference
when the pt is:
- Requesting an ordered lesser potent pain medication.
Least to most potent pain medications are defined
as: acetaminophen < NSAID < tramadol < opioids
(morphine, oxycodone, hydromorphone).
- Requesting a lesser dose of the same medication IF
ORDERED.
- Requesting a less intrusive route of administration
if both routes are prescribed by the provider (PO <
IV).
07/04/24 04:22
Code Status As Directed
Resuscitation Status: Full Code
07/04/24 04:23
Add On- LAB Urgent
Tests Added?: Magnesium
Potassium Chloride [KCl] 40 meq 0.9% Sodium Chloride 250 ml [Nss] 250 ml IV NOW
07/04/24 04:27
COVID-19 Antigen Urgent
Source: Nasal Swab
Blood Culture Urgent
[place] Source: Blood/Venous
Specimen Description:
Influenza A+B Rapid Molecular Routine
[place] Source: Nasal Swab
Specimen Description:
07/04/24 04:36
0.9% Sodium Chloride [Nss (Preservative Free)] See Protocol IV PRN PRN
Lorazepam [Ativan] 1 mg IV Q1HPRN PRN
Lorazepam [Ativan] 1 mg PO Q2HPRN PRN
Lorazepam [Ativan] 2 mg IV Q1HPRN PRN
07/04/24 04:36
MSAS SCORE As Directed
MSAS Score 0-4: Repeat MSAS every 2 hours until 0-4 for three consecutive assessments, then every 4 hours x 48
hours.
MSAS Score 5-7: For MILD withdrawl symptoms. Repeat MSAS and RASS every 2 hours
MSAS Score 8-11: For MODERATE withdrawal symptoms. Repeat MSAS and RASS every 1 hour. Consider ICU or IMU
level of care.
MSAS Score > 11: For SEVERE withdrawal symptoms. Repeat MSAS and RASS every 1 hour. Notify provider, consider
ICU level of care.
MSAS Additional Instructions: If no improvement or no decrease in score from severe to moderate within 12
hours, consult psychiatry
MSAS Notify Provider: Notify provider if patient requires more than 10 mg of Lorazepam in eight hour period.
Neurological Checks As Directed
Frequency: q4h
07/04/24 05:40
LFT [Bllfw-[id number]] IN AM
Magnesium Routine
Comment: ADDED
Phosphorus IN AM
Troponin I Q6H
07/04/24 Breakfast
NPO
Allow oral meds: Yes
Allow clear liquids: Sips of Clears
07/04/24 06:26
Acetaminophen [Tylenol] 650 mg PO Q4HPRN PRN
CefTRIAXone [Rocephin] 1,000 mg IV Q24H
FOLic ACID [Folvite] 1 mg 0.9% Sodium Chloride 50 ml [Nss] 50 ml IV DAILYPRN
Lactated Ringers [Lr] 1,000 ml IV 100 mls/hr
Ondansetron Injectable [Zofran] 4 mg IV Q6HPRN PRN
07/04/24 06:26
Case Management Consult Once
Case Management Consult: Other
Comment: Substance abuse counseling
DIETARY CONSULT Routine
Reason for Consult: Nutrition support, possible refeeding guidelines
WOUND/OSTOMY CONSULT Routine
Reason for Consult: LE Wound
TSH Reflex To Free T4 Routine
Activity As Directed
Activity Level: Ambulate
With Assistance
EKG with chest pain [ECG as needed] As Directed
ECG as needed for:: Chest Pain
I/O [Intake/ Output] As Directed
Frequency: Per unit guidelines
Pneumatic Compression Sleeves As Directed
Type: Knee high
Precautions As Directed
Type of Precautions: Seizure
Aspiration
Vital Signs As Directed
Frequency: Per unit guidelines
Weight As Directed
Frequency: Daily
Oxygen Therapy [O2 Therapy] [RESP] Routine
Titrate/Wean O2 to maintain O2 sat greater than (%): 94
Ot Eval And Treat Routine
PT Consult [Pt Eval And Treat] Routine
Activity Level: Ambulate
With Assistance
DX Deep Vein Thrombosis Video Routine
07/04/24 08:00
FOLic ACID [Folvite] 1 mg PO DAILY
Heparin 5,000 units SC Q12
Pantoprazole [Protonix IV] 40 mg IV DAILY
Thiamine Injection 200 mg IV Q8
07/04/24 10:38
Troponin I Q6H
07/04/24 16:00
Phenobarbital Sodium [Phenobarbital] 97.5 mg IV TID
07/04/24 16:38
Troponin I Q6H
07/05/24 06:00
EKG [Electrocardiogram (*1)] IN AM
Reason for Study: Chest Pain
Basic Metabolic Panel IN AM
Complete Blood Count/No Diff IN AM
07/06/24 16:00
Phenobarbital [Luminal] 64.8 mg PO TID
07/07/24 08:00
Thiamine HCl [Vitamin B1] 100 mg PO BID
07/08/24 16:00
Phenobarbital [Luminal] 32.4 mg PO TID
Abnormal Lab Results
07/04/24
00:14
WBC 13.1 H 10^3/uL
(4.8-10.8)
Abs Immat Gran (auto) 0.2 H 10^3/uL
(0-0.05)
Absolute Neuts (auto) 10.6 H 10^3/uL
(1.4-6.5)
Absolute Monos (auto) 1.0 H 10^3/uL
(0.1-0.6)
Immature Gran % 1.8 H %
(0-0.5)
Neutrophils % 80.9 H %
(42.2-75.2)
Lymphocytes % 9.2 L %
(20.5-51.1)
PT 15.9 H Sec
(11.4-14.6)
Sodium 134 L mmol/L
(135-145)
Potassium 2.8 L mmol/L
(3.5-5.1)
Chloride 96 L mmol/L
(98-107)
Glucose 156 H mg/dl
(70-99)
AST 38 H U/L
(14-36)
Urine Ketones 1+ A
(Negative)
Leukocyte Esterase Rfl Trace A
(Negative)
Urine WBC (Reflex) 11-15 A /HPF
(0-5)
Urine Bacteria (Reflex) Many A
(Negative)
Salicylates < 1.0 L mg/dl
(2.0-20.0)
Acetaminophen < 10 L ug/ml
(10-30)
U Marijuana (THC) Screen Positive H
(Negative)
07/04/24 00:14
07/04/24 00:14
Vital Signs
Initial and Last Documented VS:
Initial Vital Signs
Temp Pulse Resp BP Pulse Ox
98.2 F 103 18 172/76 95
07/03/24 23:14 07/03/24 23:14 07/03/24 23:14 07/03/24 23:14 07/03/24 23:14
Last Documented Vital Signs
Temp Pulse Resp BP Pulse Ox
100.7 F H 99 16 152/90 97
07/04/24 04:02 07/04/24 06:17 07/04/24 06:17 07/04/24 06:17 07/04/24 06:50
*Critical Care Note
Total Time (30-74mins, 75-104mins- exclusive of procedures): 40 (Critical care statement: A total of 40 minutes of critical care time was provided for this patient. This time is separate from time utilized to perform the aforementioned documented
procedures. Aggregate critical care time includes only time during which I was engaged in work directl)
Data Reviewed
Review of Other/Old Records Reveals: Labs and Records
Source: patient, family and ambulance crew
Patient Management
Social determinants of health affecting care: Living situation, Substance abuse and Poor social support
Discussion with other providers: Division Sales Manager (Neurology)
Update Note
Update Note:
CT FACE, CTA HEAD, CTA NECK
IMPRESSION:
FACE:
Mild motion degradation limits evaluation
No facial fracture. No evidence of orbital injury.
CTA HEAD:
No large vessel occlusion or critical stenosis within the anterior or posterior circulation.
CTA NECK:
No large vessel occlusion or critical stenosis within the anterior or posterior circulation.
Enlarged main pulmonary artery measuring up to 3.6 cm
Case finalized on Jul 04 2024 12:27AM ET
CT HEAD
IMPRESSION:
No acute hemorrhage, herniation, or hydrocephalus.
No calvarial fracture.
The visualized paranasal sinuses and mastoid air cells are clear.
ED Attending Note
-
Portions of this chart may have been created with voice recognition software.� Occasional wrong word or��sound alike� substitutions may have occurred due to the inherent limitations of voice recognition software.
Discharge Plan
Departure
Patient Disposition: Admit
Date of Disposition: 07/04/24
Time of Disposition: 02:49
Presentation/result/management discussed w/ accepting MD/DO: Hospitalist
Discharge Problem:
Altered mental status, Urinary tract infection, Alcohol withdrawal delirium
Interventions
Interventions:
*Risk Screen - Suicide Last Done: 07/04/24 06:20
*General Assessment Last Done: 07/03/24 23:14
*Neglect/Abuse Screening Last Done: 07/03/24 23:14
ED- Fall Risk Assessment Last Done: 07/04/24 06:00
*ED COVID-19 Vaccine History Last Done: 07/04/24 05:20
*Nursing Disposition Last Done: 07/04/24 06:00
ED-Psychological Assessment Last Done: 07/04/24 00:40
ED- Neurological Assessment Last Done: 07/03/24 23:51
ED Swallowing Screen Last Done: 07/04/24 02:26
Discharge Date and Time
Discharge Date/Time: 07/04/24 06:20
[2024-07-04 01:10] LABS: Erythrocyte Sed Rate 20 mm/hour (0-20)
[2024-07-04 01:22] LABS: Urine Amorphous Seen
[2024-07-04] MEDS: ATIVAN 2 MG IV ×3 (01:34→05:28)
[2024-07-04] MEDS: MULTIVITAMIN 1011 ML IV (02:21)
[2024-07-04] MEDS: MULTIVITAMIN 1011 MG IV (02:21)
[2024-07-04] MEDS: NSS 1000 IV (02:45)
[2024-07-04] MEDS: ZOSYN 100 IV (02:46)
--- NOTE | 2024-07-04 02:58 | EDRN ---
Pt. remains confused to situation and time, consistently pulling at monitor/IV's despite constant redirection. Mental status remains unchanged s/p ativan injection. 1:1 sitter to bedside.
[2024-07-04] MEDS: TYLENOL 1000 MG PO (04:21)
--- NOTE | 2024-07-04 04:27 | HPS.HSE ---
Family Physician
-
Family Physician: INTERVIEWE UNKNOWN - PT NOT
Chief Complaint
-
Seizure Activity / Confusion
History of Present Illness
Patient is a 73y F with PMH significant for alcohol use disorder and chronic pain who presents to ED via EMS for witnessed seizures at home. History obtained entirely from ED staff. Patient is confused / disoriented and unable to contribute to
history. Attempted to reach via phone without success.
Patient reportedly has history of heavy alcohol consumption - ? daily amount. ? last drink. No details are known.
reportedly stated that patient had been confused for the past week or so at home.
This evening she had shaking / seizure activity which prompted him to call 911. Apparently, patient was oriented enough to refuse ED evaluation at that time.
A short time later, she had another witnessed episode and 911 was called again. Patient was brought to the ED for further evaluation.
In the ED, patient is awake and interactive - but evidently confused. She is intermittently pulling at medical devices and appears to be disoriented.
Medical History
Past Medical History
Past Medical History: Reports Other
Additional Past Medical History:
Anxiety / depression
Peripheral Neuropathy
Chronic Pain Syndrome
Migraine Headaches
Past Surgical History: Reports Other
Additional Past Surgical History:
Sacral Interstim Implant
Hysterectomy
Lumpectomy (benign)
EGD / Esophageal Dilation
Cataracts
Social History
Unable to obtain full social history at this time due to: Other (Delirium)
Family History
Family History: Unable to Obtain
Allergies / Home Medications
Allergies reflects when Allergies were last updated in [facility].
Home Medications with original date entered in [facility]
Allergy/Medication List:
Unable to confirm current medications.
If medication reconciliation has not been performed, why?: Dementia (Delirium)
Review of Systems
-
Unable to obtain full review of systems at this time due to: Other (Delirium)
Physical Exam
Vital Signs
Vital Signs
Temp Pulse Resp BP Pulse Ox
100.7 F H 101 26 160/95 95
07/04/24 04:02 24 03:15 07/04/24 03:15 07/04/24 03:00 07/04/24 03:15
Physical Exam
General: Other (73y F in no acute distress. Restless / agitated at times. Pulling at monitor, IV sites, etc.)
HEENT: Other (Dry MM. Neck supple.)
Respiratory: Clear; No Wheezes, Rales or Rhonchi
Cardiac: S1/S2 and Tachycardia; No Murmur
GI: Soft, Non Tender, Non Distended and Normal Bowel Sounds
Musculoskeletal: No Clubbing and No Cyanosis
Skin: Other (Erythema an increased warmth b/l LEs. Crusted / scabbed lesion R anterior schmidt.)
Neuro: Awake; No Oriented
Psych: Confused, Agitated and Anxious
Laboratory Results
-
07/04/24 00:14
07/04/24 00:14
Laboratory Results
PT 15.9 Sec (11.4-14.6) H 07/04/24 00:14
INR 1.24 07/04/24 00:14
APTT 23.8 Sec (23.4-35.0) 07/04/24 00:14
Total Bilirubin 1.2 mg/dl (0.2-1.3) 07/04/24 00:14
AST 38 U/L (14-36) H 07/04/24 00:14
ALT 24 U/L (0-35) 07/04/24 00:14
Alkaline Phosphatase 65 U/L (38-126) 07/04/24 00:14
Troponin I 0.030 ng/ml 07/04/24 00:14
Impression/Plan
-
A/P: Patient is a 73y F with PMH significant for alcohol use disorder and chronic pain who presents to ED for evaluation after two witnessed seizure episodes this evening.
Alcohol Withdrawal Syndrome
Seizure activity secondary to the above
Acute TME secondary to the above
- Admit for further evaluation and treatment.
- Given seizure and significant history will begin phenobarbital protocol.
- IV Ativan as needed for breakthrough symptoms/ recurrent seizures / etc.
- Thiamine, folate, MVI replacement, etc.
- IVF support.
- Seizure / aspiration precautions.
- Follow for clinical improvement.
Fever
- Unclear etiology. Potentially related to seizure.
- ? LE cellulitis with wound / erythema. ? UTI with suspect UA.
- Cover with IV ceftriaxone for now.
- Follow up urine culture data.
- Follow for exam changes, fever curve, new symptoms, etc.
Hypokalemia
- Likely secondary to alcohol use disorder.
- ? unwitnessed / unreported GI losses. N/V/D?
- Replace potassium. Check Mg.
- Follow labs / lytes and replete as needed.
Anxiety / Depression
- Resume usual meds after formal reconciliation in the AM.
Peripheral Neuropathy
Chronic Pain Syndrome
- s/p sacral interstim placement in February.
- Resume usual meds once formal reconciliation in the AM.
DVT Prophylaxis: Subcut Heparin
Code Status: Full
[2024-07-04 04:36] LABS: Lactic Acid 1.4 mmol/L (0.7-2.0)
[2024-07-04] MEDS: KCL 270 MEQ IV (04:52)
[2024-07-04 04:55] LABS: COVID-19 Antigen Negative (Negative)
--- NOTE | 2024-07-04 05:21 | EDRN ---
Phenobarb. requested from pharmacy.
[2024-07-04] MEDS: FLUSH (NSS) 1 FLUSH IV ×2 (05:55→18:46)
[2024-07-04 06:29] LABS: ALT (SGPT) 23 U/L (0-35); AST (SGOT) 37 U/L (14-36); Albumin 3.8 g/dl (3.5-5.0); Alkaline Phosphatase 58 U/L (38-126); Direct Bilirubin 0.5 mg/dl (0.0-0.4); Magnesium 1.9 mg/dl (1.6-2.3); Phosphorus 2.8 mg/dl (2.5-4.5); Total Bilirubin 1.6 mg/dl (0.2-1.3); Total Protein 6.5 g/dl (6.3-8.2)
[2024-07-04 06:41] LABS: Troponin I 0.049 ng/ml
[2024-07-04] MEDS: PHENOBARBITAL 104 MG IV (06:41)
[2024-07-04] MEDS: ROCEPHIN 1000 MG IV (06:46)
[2024-07-04] MEDS: STERILE WATER FOR INJECTION 10 ML IV (06:46)
[2024-07-04] MEDS: LR 1000 IV ×2 (07:27→16:31)
[2024-07-04] MEDS: ATIVAN 1 MG IV ×2 (07:35→11:22)
[2024-07-04] MEDS: NSS (PRESERVATIVE FREE) 10 ML IV (07:35)
[2024-07-04] MEDS: PROTONIX IV 40 MG IV (07:35)
--- NOTE | 2024-07-04 07:35 | PTCARENOTE ---
Patient received from weight shifter. Patient resting comfortably in bed. AAO mostly to self, VSS. No complaints of pain at this time. Currently on MSAS with AM MSAS of 9. IVF to be started after K-rider and Phenobarb finishes. 1:1 with patient
to maintain IV access and patient safety as patient continually attempts to get out of bed. No tests scheduled for today. Call griffith in reach.
[2024-07-04] MEDS: FOLVITE 1 MG PO (07:36)
[2024-07-04] MEDS: HEPARIN 5000 UNITS SC ×2 (07:36→19:53)
[2024-07-04] MEDS: NSS (PRESERVATIVE FREE) 0.5 ML IV (07:36)
[2024-07-04] MEDS: THIAMINE INJECTION 200 MG IV ×2 (07:37→16:30)
--- NOTE | 2024-07-04 09:18 | W.PN.HOSP.TC ---
Today's Communication/Plan
-
Alcohol withdrawal protocol.
Assessment / Plan
Assessment / Plan
Physical Exam
General: Other (73y F in no acute distress. Restless / agitated at times. Pulling at monitor, IV sites, etc.)
HEENT: Other (Dry MM. Neck supple.)
Respiratory: Clear; No Wheezes, Rales or Rhonchi
Cardiac: S1/S2 and Tachycardia; No Murmur
GI: Soft, Non Tender, Non Distended and Normal Bowel Sounds
Musculoskeletal: No Clubbing and No Cyanosis
Skin: Other (Erythema an increased warmth b/l LEs. Crusted / scabbed lesion R anterior schmidt.)
Neuro: Awake; No Oriented
Psych: Confused, Agitated and Anxious
A/P:
Alcohol Withdrawal Syndrome
Seizure activity secondary to the above
Acute TME secondary to the above
- Admit for further evaluation and treatment.
- Given seizure and significant history will begin phenobarbital protocol.
- IV Ativan as needed for breakthrough symptoms/ recurrent seizures / etc.
- Thiamine, folate, MVI replacement, etc.
- IVF support.
- Seizure / aspiration precautions.
- Follow for clinical improvement.
Fever
- Unclear etiology. Potentially related to seizure.
- ? LE cellulitis with wound / erythema. ? UTI with suspect UA.
- Cover with IV ceftriaxone for now. Low threshold to discontinue if cultures remain negative.
- Follow up urine culture data.
- Follow for exam changes, fever curve, new symptoms, etc.
Hypokalemia
- Likely secondary to alcohol use disorder.
- ? unwitnessed / unreported GI losses. N/V/D?
- Replace potassium. Check Mg.
- Follow labs / lytes and replete as needed.
Anxiety / Depression
- Resume usual meds after formal reconciliation in the AM.
Peripheral Neuropathy
Chronic Pain Syndrome
- s/p sacral interstim placement in February.
- Resume usual meds once formal reconciliation in the AM.
DVT Prophylaxis: Subcut Heparin
Code Status: Full
Anticipated Discharge: > 48 hours
Subjective/Interval History
-
Date of Service: July 04, 2024
Patient still encephalopathic
Objective Data
-
Labs:
Laboratory Results
07/04/24 07/04/24
00:14 05:40
WBC 13.1 H
Hgb 13.9
Hct 41.2
Plt Count 287
PT 15.9 H
INR 1.24
APTT 23.8
Sodium 134 L
Potassium 2.8 L
Chloride 96 L
Carbon Dioxide 27
BUN 16
Creatinine 0.7
Glucose 156 H
Calcium 9.3
Total Bilirubin 1.2 1.6 H
AST 38 H 37 H
ALT 24 23
Alkaline Phosphatase 65 58
Vital Signs:
Vital Signs
Temp Pulse Resp BP Pulse Ox
98.6 F 99 16 152/90 97
07/04/24 08:32 07/04/24 06:17 07/04/24 06:17 07/04/24 06:17 07/04/24 06:50
[2024-07-04] MEDS: ATIVAN 1 MG PO (09:23)
[2024-07-04 11:01] LABS: TSH Reflex To Free T4 0.99 uIU/ml (0.47-4.68)
[2024-07-04 11:05] LABS: Troponin I 0.035 ng/ml
[2024-07-04] MEDS: NSS (PRESERVATIVE FREE) 1 ML IV (11:23)
--- NOTE | 2024-07-04 13:18 | WOUNDNOTE ---
WOC RN NOTE: Reviewed chart, spoke to nurse and assessed patients lower extremities. Patient has a scabbed abrasion of left LE. Hospitalist contacted and consult cancelled. RN Ruiz updated.
--- NOTE | 2024-07-04 13:20 | WOUNDNOTE ---
WOC RN NOTE: Patient consulted for right great toe wound. Pictures taken. No open wound at this time so need for local wound care. Podiatry to follow.
--- NOTE | 2024-07-04 15:40 | CM ---
Patient confused; Initial assessment and CM Consult completed with patient's via phone
Pharmacy verified: [facility] @ [address] [place] [address]
did not know name of Family Physician; but will attempt to find out and provide information to care team when available
reported that he and patient live in a multilevel home; 2 steps to enter; 12 steps between floors; inside railing on stairs; powder room 1st floor; 2nd floor bath has tub w/shower; installed a temporary grab bar
PLOF: reported that patient ambulates with a cane; independent with her personal care; manages other ADLs; patient does not drive
No recent SNF or home health utilization
will provide transport
ETOH counseling discussed; agreeable to having [facility] counselor meet with his when condition and mental status is improved; referral sent to [facility] liaison via voice mail
Discharge Plan: Case Management will monitor and support coordination of disposition needs when determined
[2024-07-04] MEDS: DESENEX/MITRAZOL/ZEASORB 1 APPLIC TOPICAL ×2 (16:29→19:53)
[2024-07-04] MEDS: PHENOBARBITAL 97.5 MG IV ×2 (16:30→22:02)
[2024-07-05] VITALS (15 sets, daily range): BP systolic 116–153; BP diastolic 59–89; PULSE 74–78; O2SAT 94–96; BMI 29.9
[2024-07-05] MEDS: THIAMINE INJECTION 200 MG IV ×3 (00:14→16:15)
--- NOTE | 2024-07-05 01:21 | PTCARENOTE ---
assumed care of patient from previous RN. Patient is orientated to self, confused and drowsy. MSAS scores have been below 5 since this RN shift. Bladder scan for 595, straight cath for 600ml. Lr running at 100 in right wrist IV. PCT in room with
patient as 1:1. NSR on monitor and on room air sating at 95. Patient has been sleeping most of shift but is arousable. Call griffith in reach. Assessment and VS as documented.
--- NOTE | 2024-07-05 01:59 | PTCARENOTE ---
patient desating overnight into mid to low 80s while sleeping, placed on 2L NC. Now sating at 98%.
[2024-07-05] MEDS: LR 1000 IV (03:07)
[2024-07-05 04:49] LABS: % Basophils 0.9 % (0-2); % Eosinophils 2.7 % (0-6); % Immature Granulocytes 0.3 % (0-0.5); % Lymphocytes 29.2 % (20.5-51.1); % Monocytes 8.9 % (1.7-9.3); Absolute Basophils 0.1 10^3/uL (0-0.2); Absolute Eosinophils 0.3 10^3/uL (0-0.7); Absolute Lymphocytes 2.7 10^3/uL (1.2-3.4); Absolute Monocytes 0.8 10^3/uL (0.1-0.6); Absolute Neutrophils 5.3 10^3/uL (1.4-6.5); Hemoglobin 11.7 g/dL (12.0-16.0); Mean Corp Hgb Conc. 32.5 g/dL (33.0-37.0); Mean Corpuscular Hgb 29.1 pg (27.0-31.0); Mean Corpuscular Volume 89.6 fL (81.0-99.0); Mean Platelet Volume 9.9 fL (7.4-10.4); Nucleated Red Blood Cells % 0 %; Platelet Count 232 10^3/uL (130-400); Red Blood Cell Count 4.02 10^6/uL (4.20-5.40); Red Cell Dist. Width 14.3 % (11.5-14.5); White Blood Cell Count 9.2 10^3/uL (4.8-10.8)
[2024-07-05 05:05] LABS: ALT (SGPT) 22 U/L (0-35); AST (SGOT) 33 U/L (14-36); Albumin 3.3 g/dl (3.5-5.0); Alkaline Phosphatase 46 U/L (38-126); Blood Urea Nitrogen 11 mg/dl (7-17); Calcium 8.6 mg/dl (8.4-10.2); Carbon Dioxide 28 mmol/L (22-30); Chloride 102 mmol/L (98-107); Estimated Creatinine Clearance 97 ml/min; Glucose 91 mg/dl (70-99); Sodium 137 mmol/L (135-145); Total Bilirubin 1.1 mg/dl (0.2-1.3); Total Protein 5.9 g/dl (6.3-8.2); eGFR > 60.00
[2024-07-05] MEDS: FLUSH (NSS) 1 FLUSH IV ×2 (05:28→05:35)
[2024-07-05] MEDS: STERILE WATER FOR INJECTION 10 ML IV (05:29)
[2024-07-05] MEDS: ROCEPHIN 1000 MG IV (05:29)
[2024-07-05] MEDS: KCL 270 MEQ IV (05:39)
--- NOTE | 2024-07-05 08:40 | W.PN.HOSP.TC ---
Today's Communication/Plan
-
IV antibiotics. Benzo's thiamine and folate.
Assessment / Plan
Assessment / Plan
Physical exam:
General: Acutely ill
HEENT: Normocephalic, Atraumatic and dry mucous Membranes
Respiratory: Clear to Auscultation; Negative Wheezes, Rales or Rhonchi
Cardiac: Regular Rhythm and S1/S2
GI: Soft, Nontender and Nondistended
Musculoskeletal: No Clubbing, No Cyanosis and No Edema
Neuro: Awake, Alert and Oriented, no neurological deficits. IV cough but much better than yesterday.
Psych: Calm
A/P:
Acute toxic metabolic encephalopathy:
Multifactorial including alcohol withdrawal seizures, UTI,? Benzo withdrawal.
Continue to monitor neurological status
PT OT eval
Start regular diet today
Continue IV fluids but discontinue later on if able to tolerate oral intake
UTI:
Continue IV ceftriaxone
WBC 13.1--> 9.2
Urine culture growing GNR
Alcohol withdrawal:
Continue MSA protocol
Continue phenobarbital taper
Continue thiamine and folate
Hypokalemia:
Replete and trend
Urinary retention:
She was initially retaining but she has been able to void spontaneously without requiring any urinary catheter the more she is able to move around
Rest of medical problems:
Chronic pain syndrome
Depression anxiety
Med reconciliation has not been done yet-once updated will resume her meds as appropriate.
DVT prophylaxis:
Heparin SQ
CODE STATUS:
Full code
Total time spent on today's encounter was 52 minutes which included time spent in counseling the patient/family regarding diagnosis and treatment plan as listed above, goals of care, and symptom management. Case was discussed with nursing staff,
specialists, and care coordinators/case management. All labs and imaging personally reviewed by me. Remainder the time spent in detailed review of previous records, lab data, imaging, and other medical provider documentation.
Anticipated Discharge: > 48 hours
Subjective/Interval History
-
Date of Service: July 05, 2024
Patient more alert today and coherent. She is able to answer questions appropriately today. She is not agitated.
Objective Data
-
Labs:
Laboratory Results
07/05/24
04:15
WBC 9.2
Hgb 11.7 L
Hct 36.0 L
Plt Count 232
Sodium 137
Potassium 3.0 L
Chloride 102
Carbon Dioxide 28
BUN 11
Creatinine 0.5 L
Glucose 91
Calcium 8.6
Total Bilirubin 1.1
AST 33
ALT 22
Alkaline Phosphatase 46
Vital Signs:
Vital Signs
Temp Pulse Resp BP Pulse Ox
98.6 F 61 16 140/89 98
07/05/24 07:03 07/05/24 04:45 07/05/24 04:45 07/05/24 04:00 07/05/24 04:45
I&O
07/04/24 07/05/24 07/06/24
06:59 06:59 06:59
Output Total 600 / 600 400 / 400
Balance -600 / -600 -400 / -400
[2024-07-05] MEDS: TYLENOL 650 MG PO (08:49)
[2024-07-05] MEDS: FOLVITE 1 MG PO (08:49)
[2024-07-05] MEDS: PROTONIX IV 40 MG IV (08:50)
[2024-07-05] MEDS: NSS (PRESERVATIVE FREE) 10 ML IV (08:50)
[2024-07-05] MEDS: PHENOBARBITAL 97.5 MG IV ×3 (08:51→21:59)
[2024-07-05] MEDS: DESENEX/MITRAZOL/ZEASORB 1 APPLIC TOPICAL ×2 (08:52→21:59)
[2024-07-05] MEDS: HEPARIN 5000 UNITS SC ×2 (08:52→20:31)
[2024-07-05] MEDS: KCL 40 MEQ PO (10:02)
[2024-07-05] MEDS: ZOFRAN 4 MG IV (13:39)
[2024-07-05] MEDS: LR IV (14:45)
--- NOTE | 2024-07-05 16:45 | CM ---
Patient with Hx alcohol use disorder and chronic pain with Dx witnessed seizures at home. Tox screen + THC. Room air. Receiving IV Abx, IV Phenobarb. MSAS per nursing. Medsitter in room. Per nurse assessment; confused/forgetful this am.
Spoke with RICHARD Lake; Simeon met with the patient earlier today who declined all substance abuse services.
Met with patient'; patient appeared A/O at this time. Offered VN for PT/OT; patient declined saying she expects her mobility to improve by the time she is ready to go home.
CM continuing to follow.
Plan home.
[2024-07-05 17:49] LABS: Hepatitis C Antibody Negative (Negative)
[2024-07-05] MEDS: ATIVAN 1 MG PO (17:58)
[2024-07-05] MEDS: MELATONIN 5 MG PO (21:59)
[2024-07-06] VITALS (14 sets, daily range): BP systolic 91–142; BP diastolic 51–83; PULSE 72; O2SAT 94; BMI 32.1
[2024-07-06] MEDS: THIAMINE INJECTION 200 MG IV ×3 (00:25→15:35)
[2024-07-06] MEDS: STERILE WATER FOR INJECTION 10 ML IV (05:46)
[2024-07-06] MEDS: ROCEPHIN 1000 MG IV (05:46)
[2024-07-06 06:29] LABS: % Basophils 0.8 % (0-2); % Eosinophils 3.8 % (0-6); % Immature Granulocytes 0.3 % (0-0.5); % Monocytes 9.3 % (1.7-9.3); % Neutrophils 54.8 % (42.2-75.2); Absolute Basophils 0.1 10^3/uL (0-0.2); Absolute Eosinophils 0.4 10^3/uL (0-0.7); Absolute Lymphocytes 2.8 10^3/uL (1.2-3.4); Absolute Monocytes 0.9 10^3/uL (0.1-0.6); Hematocrit 35.5 % (37.0-47.0); Hemoglobin 11.7 g/dL (12.0-16.0); Mean Corpuscular Hgb 29.3 pg (27.0-31.0); Nucleated Red Blood Cells % 0 %; Platelet Count 241 10^3/uL (130-400); Red Blood Cell Count 3.99 10^6/uL (4.20-5.40); Red Cell Dist. Width 14.2 % (11.5-14.5); White Blood Cell Count 9.1 10^3/uL (4.8-10.8)
[2024-07-06 07:11] LABS: ALT (SGPT) 22 U/L (0-35); AST (SGOT) 30 U/L (14-36); Albumin 3.1 g/dl (3.5-5.0); Alkaline Phosphatase 44 U/L (38-126); Blood Urea Nitrogen 14 mg/dl (7-17); Calcium 8.6 mg/dl (8.4-10.2); Carbon Dioxide 29 mmol/L (22-30); Chloride 102 mmol/L (98-107); Direct Bilirubin 0.2 mg/dl (0.0-0.4); Estimated Creatinine Clearance 101 ml/min; Glucose 128 mg/dl (70-99); Potassium 3.7 mmol/L (3.5-5.1); Sodium 135 mmol/L (135-145); Total Bilirubin 0.6 mg/dl (0.2-1.3); Total Protein 5.6 g/dl (6.3-8.2); eGFR > 60.00
[2024-07-06] MEDS: DESENEX/MITRAZOL/ZEASORB 1 APPLIC TOPICAL ×2 (08:13→20:55)
[2024-07-06] MEDS: HEPARIN 5000 UNITS SC ×2 (08:17→20:55)
[2024-07-06] MEDS: FOLVITE 1 MG PO (08:17)
[2024-07-06] MEDS: NSS (PRESERVATIVE FREE) 10 ML IV (08:19)
[2024-07-06] MEDS: PROTONIX IV 40 MG IV (08:19)
[2024-07-06] MEDS: PHENOBARBITAL 97.5 MG IV (08:22)
--- NOTE | 2024-07-06 09:03 | PTCARENOTE ---
Assumed care at 0700. AOx3, forgetful to situation. MSAS score=1 this AM, for reported nausea. VSS. NSR on telemetry, HR 50-70s. Assisted to bedside commode w/ assist x1-2. Difficulty voiding, bladder scan = 600ml. Straight cathed per
order/algorithm for 625ml himanshu urine. Now eating breakfast. Has bed alarm in place, and will maintain remote video monitoring.
--- NOTE | 2024-07-06 09:10 | W.PN.HOSP.TC ---
Today's Communication/Plan
-
Restart anxiolytics and antidepressant medications. Continue IV antibiotics. PT OT
Assessment / Plan
Assessment / Plan
Physical exam:
General: Acutely ill
HEENT: Normocephalic, Atraumatic and dry mucous Membranes
Respiratory: Clear to Auscultation; Negative Wheezes, Rales or Rhonchi
Cardiac: Regular Rhythm and S1/S2
GI: Soft, Nontender and Nondistended
Musculoskeletal: No Clubbing, No Cyanosis and No Edema
Neuro: Awake, Alert and Oriented, no neurological deficits. IV cough but much better than yesterday.
Psych: Calm
A/P:
Acute toxic metabolic encephalopathy:
Multifactorial including alcohol withdrawal seizures, UTI, ?Benzo withdrawal.
Continue to monitor neurological status
Continue regular diet today
Stop IV fluids
PT OT eval
UTI:
Continue IV ceftriaxone
WBC 13.1--> 9.1
Urine culture growing Klebsiella pneumonia
Alcohol withdrawal:
Continue MSA protocol
Continue phenobarbital taper
Continue thiamine and folate
Hypokalemia:
Replete and trend
Urinary retention:
She was initially retaining but she has been able to void spontaneously but now required straight catheterization x 1
Restart Flomax
Restart Gemtesa
Depression anxiety:
Restart high doses of Xanax
Restart Seroquel
Restart Trintellix
Restart melatonin and trazodone
Peripheral neuropathy:
Restart gabapentin
DVT prophylaxis:
Heparin SQ
CODE STATUS:
Full code
Med reconciliation completed some medications reordered.
Total time spent on today's encounter was 52 minutes which included time spent in counseling the patient/family regarding diagnosis and treatment plan as listed above, goals of care, and symptom management. Case was discussed with nursing staff,
specialists, and care coordinators/case management. All labs and imaging personally reviewed by me. Remainder the time spent in detailed review of previous records, lab data, imaging, and other medical provider documentation.
Anticipated Discharge: > 48 hours
Subjective/Interval History
-
Date of Service: July 06, 2024
Patient remains alert, orientation and focus on and off, no chest pain or shortness of breath.
Objective Data
-
Labs:
Laboratory Results
07/06/24
05:48
WBC 9.1
Hgb 11.7 L
Hct 35.5 L
Plt Count 241
Sodium 135
Potassium 3.7
Chloride 102
Carbon Dioxide 29
BUN 14
Creatinine 0.6
Glucose 128 H
Calcium 8.6
Total Bilirubin 0.6
AST 30
ALT 22
Alkaline Phosphatase 44
Vital Signs:
Vital Signs
Temp Pulse Resp BP Pulse Ox
98.6 F 65 20 141/81 90
07/06/24 07:23 07/06/24 09:00 07/06/24 09:00 07/06/24 08:00 07/06/24 09:00
I&O
07/05/24 07/06/24 07/07/24
06:59 06:59 06:59
Intake Total 1150 / 1150 480 / 480
Output Total 600 / 600 400 / 400 625 / 625
Balance -600 / -600 750 / 750 -145 / -145
[2024-07-06] MEDS: FLOMAX 0.4 MG PO (12:46)
--- NOTE | 2024-07-06 13:06 | PTCARENOTE ---
Per pharmacy, Trintellix and Gemtesa is non-formulary. , at bedside, made aware. Will try to bring medications in.
[2024-07-06] MEDS: ATIVAN 1 MG PO (13:14)
[2024-07-06] MEDS: SEROQUEL 25 MG PO ×2 (15:34→21:04)
[2024-07-06] MEDS: LUMINAL 64.8 MG PO ×2 (15:34→21:04)
[2024-07-06] MEDS: NEURONTIN 100 MG PO ×2 (15:34→21:04)
--- NOTE | 2024-07-06 17:22 | CM ---
Patient with Hx alcohol use disorder and chronic pain with Dx witnessed seizures at home. Tox screen + THC. Room air. Receiving IV Abx, IV Phenobarb, IV Ativan prn. MSAS per nursing. Medsitter in room. Per nurse assessment; forgetful.
Patient previously declined drug/alcohol resources/programs with [facility] yesterday.
CM continuing to follow.
Plan home.
[2024-07-06] MEDS: XANAX 2 MG PO ×2 (18:05→21:04)
[2024-07-06] MEDS: NON-FORMULARY ITEM 75 MG PO (20:55)
[2024-07-06] MEDS: DESYREL 100 MG PO (21:04)
[2024-07-06] MEDS: MELATONIN 5 MG PO (21:04)
[2024-07-06] MEDS: LIPITOR 20 MG PO (21:04)
--- NOTE | 2024-07-06 23:15 | PTCARENOTE ---
Pt received at beginning of shift resting in bed. at bedside - he brought in pt's Gemtesa which was sent down to pharmacy then back up to pt's room. AAOx2. Confused to date/time. MSAS 1. Bed alarm remains on and working. Medsitter in
room. VSS. Afebrile. SR/SBon CM rate 46-72. RA POX 92%. While asleep d/t desatting with sleep apnea pt placed on 2L NC POX 98%. Rest of assessment as documented. Pt refused HS/oral care. Also pt refusing scd's. Call griffith remains within reach. Will
continue to monitor.
[2024-07-07] VITALS (44 sets, daily range): BP systolic 75–164; BP diastolic 42–112; BMI 30.6
[2024-07-07] MEDS: THIAMINE INJECTION 200 MG IV (00:07)
[2024-07-07] MEDS: FLUSH (NSS) 1 FLUSH IV (00:07)
[2024-07-07] MEDS: NSS 500 IV ×2 (02:50→07:26)
--- NOTE | 2024-07-07 02:52 | PTCARENOTE ---
BP 84/52 map 58. SB rate 48. Pt drowsy but arousable. Hepzeba CLOTH SPONGER TT'd and order entered for 500ml bolus NS. NS infusing at this time. Will continue to monitor.
--- NOTE | 2024-07-07 05:00 | PTCARENOTE ---
No urine output for shift. Attends dry. Bladder scanned for 206. Pt denies need to void at this time. Lili MINER TT'd and made aware. Will continue to monitor.
[2024-07-07] MEDS: NSS 1000 IV ×3 (05:40→23:25)
[2024-07-07] MEDS: ROCEPHIN 1000 MG IV (05:50)
[2024-07-07] MEDS: STERILE WATER FOR INJECTION 10 ML IV (05:50)
--- NOTE | 2024-07-07 06:24 | W.PN.UPDATE ---
Update Note
Progress Note Update
RN notified [employer] patient received Seroquel, Gabapentin , Xanax, Trazodone, Melatonin, Phenobarbital at 2100. At 0215 87/45 (map 58) in SR rate 48, sleepy but arousable. IV bolus NSS 500CC given, BP 79/44 HR 50 one hour later, Bladder scan 200CC, no
urine out put. will order NSS @ 100 CC/hr
RN notified again, BP continuos to be on low 78/42 HR 50 98% 18, 97.3. Will order 500 CC IV bolus, will start IV Levophed as unsure if medications related or cardiac related as BP hasn't improved at all. VBG now. Hold psych Meds for now until
reevaluated.
[2024-07-07 06:57] LABS: Venous Blood Gas B.E. 2.8 mmol/L (-4 to +4); Venous Blood Gas HCO3 30.5 mmol/L (22-27); Venous Blood Gas O2 Sat % 99.4 %; Venous Blood Gas pCO2 62 mmHg (35-48); Venous Blood Gas pO2 179 mmHg (30-50)
[2024-07-07 07:04] LABS: Venous Blood Gas O2 Therapy RA
[2024-07-07] MEDS: LEVOPHED 250 IV (07:20)
[2024-07-07] MEDS: NSS (PRESERVATIVE FREE) 10 ML IV (07:28)
[2024-07-07] MEDS: PROTONIX IV 40 MG IV (07:28)
[2024-07-07] MEDS: HEPARIN 5000 UNITS SC ×2 (07:28→20:45)
[2024-07-07] MEDS: DESENEX/MITRAZOL/ZEASORB 1 APPLIC TOPICAL ×2 (07:29→20:45)
[2024-07-07] MEDS: LUMINAL 64.8 MG PO ×3 (09:17→20:45)
[2024-07-07] MEDS: NEURONTIN 100 MG PO ×3 (09:17→20:45)
[2024-07-07] MEDS: FLOMAX 0.4 MG PO (09:17)
[2024-07-07] MEDS: VITAMIN B1 100 MG PO ×2 (09:17→20:45)
[2024-07-07] MEDS: OCUVITE SOFTGEL 1 CAP PO (09:17)
[2024-07-07] MEDS: FOLVITE 1 MG PO (09:17)
[2024-07-07] MEDS: NON-FORMULARY ITEM 75 MG PO (09:18)
--- NOTE | 2024-07-07 10:09 | W.PN.HOSP.TC ---
Today's Communication/Plan
-
IV fluids. IV antibiotics.
Assessment / Plan
Assessment / Plan
Physical exam:
General: Acutely ill
HEENT: Normocephalic, Atraumatic and dry mucous Membranes
Respiratory: Clear to Auscultation; Negative Wheezes, Rales or Rhonchi
Cardiac: Regular Rhythm and S1/S2
GI: Soft, Nontender and Nondistended
Musculoskeletal: No Clubbing, No Cyanosis and No Edema
Neuro: Awake, Alert and Oriented, no neurological deficits.
Psych: Calm
A/P:
Hypotension:
Improved
Likely hypovolemia related rather than medications (patient with uti/etoh withdrawal/diarrhea)
Responded to IV fluid
Off pressors this morning
These medications she takes would cause metabolic encephalopathy rather than hypotension but okay to hold and restart over the next 24 to 48 hours
Continue monitor hemodynamic
Diarrhea:
C. difficile negative
Norovirus negative
Supportive care
Acute toxic metabolic encephalopathy:
Improving
Multifactorial including alcohol withdrawal seizures, UTI, ?Benzo withdrawal.
Continue to monitor neurological status
Continue regular diet today
PT OT eval
UTI:
Continue IV ceftriaxone
WBC 13.1--> 9.1
Urine culture growing Klebsiella pneumonia and culture sensitive to current antibiotic
Alcohol withdrawal:
Continue MSA protocol
Continue phenobarbital taper
Continue thiamine and folate
Hypokalemia:
Replete and trend
Urinary retention:
She was initially retaining but she has been able to void spontaneously but now required straight catheterization x 1
On Flomax
On Gemtesa
Depression anxiety:
On high doses of Xanax-on hold
On Seroquel-on hold
On Trintellix-on hold
Melatonin and trazodone-on hold
Peripheral neuropathy:
On gabapentin
DVT prophylaxis:
Heparin SQ
CODE STATUS:
Full code
Total time spent on today's encounter was 52 minutes which included time spent in counseling the patient/family regarding diagnosis and treatment plan as listed above, goals of care, and symptom management. Case was discussed with nursing staff,
specialists, and care coordinators/case management. All labs and imaging personally reviewed by me. Remainder the time spent in detailed review of previous records, lab data, imaging, and other medical provider documentation.
Anticipated Discharge: > 48 hours
Subjective/Interval History
-
Date of Service: July 07, 2024
Noticed overnight event of transient hypotension requiring pressors. Patient's blood pressure much improved today after IV fluids. Alert today and more oriented than before and overall perfusing well. Afebrile
Objective Data
-
Vital Signs:
Vital Signs
Temp Pulse Resp BP Pulse Ox
97.5 F 50 18 78/42 98
07/07/24 07:49 07/07/24 06:01 07/07/24 06:01 07/07/24 06:01 07/07/24 06:01
I&O
07/06/24 07/07/24 07/08/24
06:59 06:59 06:59
Intake Total 1150 / 1150 1700 / 1700
Output Total 400 / 400 625 / 625
Balance 750 / 750 1075 / 1075
--- NOTE | 2024-07-07 17:50 | PTCARENOTE ---
Assumed care of Pt at shift change; Very drowsy in bed, difficult to arouse. Received Levophed order to keep MAP > 65; Started at 2mcg with noted improvement after 10 minutes. Drip left on for 4 hours and weaned off - provider made aware.
Improvement in arousal and mentation as well. Will continue to monitor and assess.
[2024-07-07] MEDS: ATIVAN 1 MG PO (18:06)
[2024-07-07] MEDS: LIPITOR 20 MG PO (20:44)
[2024-07-07] MEDS: MELATONIN 5 MG PO (20:45)
[2024-07-08] VITALS (21 sets, daily range): BP systolic 112–147; BP diastolic 51–104; PULSE 76; O2SAT 96; BMI 31.3
[2024-07-08 04:50] LABS: % Eosinophils 4.5 % (0-6); % Immature Granulocytes 0.3 % (0-0.5); % Lymphocytes 28.8 % (20.5-51.1); % Monocytes 8.5 % (1.7-9.3); % Neutrophils 56.9 % (42.2-75.2); Absolute Basophils 0.1 10^3/uL (0-0.2); Absolute Eosinophils 0.3 10^3/uL (0-0.7); Absolute Monocytes 0.6 10^3/uL (0.1-0.6); Absolute Neutrophils 3.9 10^3/uL (1.4-6.5); Hematocrit 35.3 % (37.0-47.0); Hemoglobin 11.2 g/dL (12.0-16.0); Mean Corp Hgb Conc. 31.7 g/dL (33.0-37.0); Mean Corpuscular Hgb 28.8 pg (27.0-31.0); Mean Corpuscular Volume 90.7 fL (81.0-99.0); Mean Platelet Volume 10.6 fL (7.4-10.4); Nucleated Red Blood Cells % 0 %; Platelet Count 224 10^3/uL (130-400); Red Blood Cell Count 3.89 10^6/uL (4.20-5.40); Red Cell Dist. Width 14.7 % (11.5-14.5); White Blood Cell Count 6.9 10^3/uL (4.8-10.8)
[2024-07-08 05:15] LABS: Blood Urea Nitrogen 7 mg/dl (7-17); Calcium 8.5 mg/dl (8.4-10.2); Carbon Dioxide 27 mmol/L (22-30); Chloride 106 mmol/L (98-107); Estimated Creatinine Clearance 99 ml/min; Glucose 118 mg/dl (70-99); Potassium 3.7 mmol/L (3.5-5.1); Sodium 137 mmol/L (135-145); eGFR > 60.00
[2024-07-08] MEDS: ROCEPHIN 1000 MG IV (05:28)
[2024-07-08] MEDS: STERILE WATER FOR INJECTION 10 ML IV (05:28)
--- NOTE | 2024-07-08 05:39 | PTCARENOTE ---
Pt without urine output for shift. Bladder scanned this am for 491mls. Pt denies need or urge to void at this time. She is refusing to try and/or straight cath. Will continue to monitor.
[2024-07-08] MEDS: ZOFRAN 4 MG IV ×2 (07:44→13:33)
[2024-07-08] MEDS: NSS (PRESERVATIVE FREE) 10 ML IV (07:45)
[2024-07-08] MEDS: PROTONIX IV 40 MG IV (07:45)
[2024-07-08] MEDS: HEPARIN 5000 UNITS SC ×2 (07:45→21:02)
[2024-07-08] MEDS: DESENEX/MITRAZOL/ZEASORB 1 APPLIC TOPICAL ×2 (07:48→21:02)
[2024-07-08] MEDS: NEURONTIN 100 MG PO ×3 (08:28→21:03)
[2024-07-08] MEDS: OCUVITE SOFTGEL 1 CAP PO (08:28)
[2024-07-08] MEDS: VITAMIN B1 100 MG PO ×2 (08:29→21:03)
[2024-07-08] MEDS: NON-FORMULARY ITEM 75 MG PO (08:29)
[2024-07-08] MEDS: LUMINAL 64.8 MG PO (08:29)
[2024-07-08] MEDS: FLOMAX 0.4 MG PO (08:29)
[2024-07-08] MEDS: FOLVITE 1 MG PO (08:29)
--- NOTE | 2024-07-08 08:59 | W.PN.HOSP.TC ---
Today's Communication/Plan
-
IV fluids. IV antibiotics. Restart anxiolytics and antidepressants/antipsychotics
Assessment / Plan
Assessment / Plan
Physical exam:
General: Acutely ill
HEENT: Normocephalic, Atraumatic and dry mucous Membranes
Respiratory: Clear to Auscultation; Negative Wheezes, Rales or Rhonchi
Cardiac: Regular Rhythm and S1/S2
GI: Soft, Nontender and Nondistended
Musculoskeletal: No Clubbing, No Cyanosis and No Edema
Neuro: Awake, Alert and Oriented, no neurological deficits.
Psych: Calm
A/P:
Hypotension day prior but stable today:
Improved
Likely hypovolemia related rather than medications (patient with uti/etoh withdrawal/diarrhea)
Responded to IV fluid
Off pressors this morning
These medications she takes would cause metabolic encephalopathy rather than hypotension but okay to hold and restart over the next 24 to 48 hours
Continue monitor hemodynamic
Diarrhea:
C. difficile negative
Norovirus negative
Supportive care
Acute toxic metabolic encephalopathy:
Improving
Multifactorial including alcohol withdrawal seizures, UTI, ?Benzo withdrawal.
Continue to monitor neurological status
Continue regular diet today
PT OT eval
UTI:
Continue IV ceftriaxone
WBC 13.1--> 6.9
Urine culture growing Klebsiella pneumonia and culture sensitive to current antibiotic
Alcohol withdrawal:
Continue MSA protocol
Continue phenobarbital taper
Continue thiamine and folate
Hypokalemia:
Replete and trend
Urinary retention:
She was initially retaining but she has been able to void spontaneously but now required straight catheterization x 1
On Flomax
On Gemtesa
Depression anxiety:
On high doses of Xanax-will restart
On Seroquel-will restart
On Trintellix-will restart
Melatonin and trazodone-on hold
Peripheral neuropathy:
On gabapentin
DVT prophylaxis:
Heparin SQ
CODE STATUS:
Full code
Anticipated Discharge: 24 - 48 hours
Subjective/Interval History
-
Date of Service: July 08, 2024
Patient doing much better overall but feels very and she does not wants her anxiolytics back. Blood pressure stable. Afebrile
Objective Data
-
Labs:
Laboratory Results
07/08/24
04:29
WBC 6.9
Hgb 11.2 L
Hct 35.3 L
Plt Count 224
Sodium 137
Potassium 3.7
Chloride 106
Carbon Dioxide 27
BUN 7
Creatinine 0.5 L
Glucose 118 H
Calcium 8.5
Vital Signs:
Vital Signs
Temp Pulse Resp BP Pulse Ox
98.7 F 60 18 123/69 97
07/08/24 07:20 07/08/24 06:00 07/08/24 06:00 07/08/24 06:00 07/08/24 06:00
I&O
07/07/24 07/08/24 07/09/24
06:59 06:59 06:59
Intake Total 1700 / 1700 4000 / 4000
Output Total 625 / 625 1000 / 1000
Balance 1075 / 1075 3000 / 3000
[2024-07-08] MEDS: NSS 1000 IV ×2 (10:22→21:02)
[2024-07-08] MEDS: XANAX 2 MG PO ×2 (13:33→21:03)
--- NOTE | 2024-07-08 14:21 | CM ---
Patient with Hx alcohol use disorder and chronic pain with Dx witnessed seizures at home. Tox screen + THC. Room air. Receiving IV Abx. PT 07/08 recommends home v outpatient PT. OT 07/05 recommends HH. Per nurse assessment; forgetful.
Request to speak with her John; the patient lost her insurance cards - he was provided copies of cards that were scanned into chart.
He expressed concerns that patient had not filled most of her meds for about a month and she will need all her meds re-ordered at d/c. He is hoping to speak with physician about his concerns about patient's ongoing memory impairment ---> message
relayed to Dr Rubin.
says he is available to provide 24 hr supervision to patient at home.
says patient is starting to acknowledge that she has a drinking problem. He is unsure that she would want to see [facility] again.
unsure if patient will want VN at home or script for outpatient PT.
Plan offer VN or script for outpatient therapy.
Plan home.
[2024-07-08] MEDS: SEROQUEL 25 MG PO ×2 (17:11→21:03)
[2024-07-08] MEDS: LUMINAL 32.4 MG PO ×2 (17:11→21:03)
--- NOTE | 2024-07-08 18:01 | PTCARENOTE ---
Pt OOB to bathroom and sat in chair for several hours today; Pt continues to have difficulty recalling events both recent and distant - per this is a new issue. Pt also reported nausea throughout day, received Zofran PRN with some effect.
Pt and requested help with services - Tape Edge Machine Operator made aware and spoke with Pt and . AAO x 3, but confused at times. Very forgetful; SR on monitor. Will continue to monitor and assess.
[2024-07-08] MEDS: MELATONIN 5 MG PO (21:03)
[2024-07-08] MEDS: LIPITOR 20 MG PO (21:03)
--- NOTE | 2024-07-08 23:40 | PTCARENOTE ---
Assumed care of patient from previous RN. Patient is Aox3 but confused at times and very forgetful. NSR on monitor. 2L O2 overnight due to desating. OOB to bathroom with walker assist x1. Patient needs to be reminded and prompted to urinate, forgets
to go on her own. Assessment and VS as charted.
[2024-07-09] VITALS (19 sets, daily range): BP systolic 97–133; BP diastolic 51–103; BMI 31.8
--- NOTE | 2024-07-09 02:54 | PTCARENOTE ---
Bladder scanned patient at 00:00 due to no urine output, BS for 900. walked patient to bathroom where she urinated but still retained 350 ml after voiding. Bladder scanned 2 hours later per protocol and scanned for 683, walked patient to bathroom
where she tried to void but only was able to void about 90 ml. Straight cath patient for 550ml.
[2024-07-09 04:21] LABS: % Basophils 1.1 % (0-2); % Immature Granulocytes 0.3 % (0-0.5); % Lymphocytes 32.5 % (20.5-51.1); % Monocytes 9.1 % (1.7-9.3); Absolute Basophils 0.1 10^3/uL (0-0.2); Absolute Eosinophils 0.3 10^3/uL (0-0.7); Absolute Monocytes 0.6 10^3/uL (0.1-0.6); Absolute Neutrophils 3.3 10^3/uL (1.4-6.5); Hematocrit 31.2 % (37.0-47.0); Hemoglobin 10.3 g/dL (12.0-16.0); Mean Corpuscular Hgb 29.6 pg (27.0-31.0); Mean Corpuscular Volume 89.7 fL (81.0-99.0); Mean Platelet Volume 10.6 fL (7.4-10.4); Nucleated Red Blood Cells % 0 %; Platelet Count 202 10^3/uL (130-400); Red Blood Cell Count 3.48 10^6/uL (4.20-5.40); Red Cell Dist. Width 14.6 % (11.5-14.5); White Blood Cell Count 6.2 10^3/uL (4.8-10.8)
[2024-07-09] MEDS: NSS 1000 IV ×2 (04:57→15:13)
[2024-07-09 05:07] LABS: Blood Urea Nitrogen 6 mg/dl (7-17); Calcium 8.6 mg/dl (8.4-10.2); Carbon Dioxide 27 mmol/L (22-30); Chloride 108 mmol/L (98-107); Estimated Creatinine Clearance 100 ml/min; Glucose 119 mg/dl (70-99); Potassium 3.6 mmol/L (3.5-5.1); Sodium 138 mmol/L (135-145); eGFR > 60.00
[2024-07-09] MEDS: STERILE WATER FOR INJECTION 10 ML IV (05:12)
[2024-07-09] MEDS: ROCEPHIN 1000 MG IV (05:12)
[2024-07-09] MEDS: VITAMIN B1 100 MG PO ×2 (08:19→21:02)
[2024-07-09] MEDS: NEURONTIN 100 MG PO ×3 (08:19→21:02)
[2024-07-09] MEDS: XANAX 2 MG PO ×3 (08:19→21:02)
[2024-07-09] MEDS: LUMINAL 32.4 MG PO ×3 (08:19→21:02)
[2024-07-09] MEDS: FOLVITE 1 MG PO (08:19)
[2024-07-09] MEDS: NSS (PRESERVATIVE FREE) 10 ML IV (08:20)
[2024-07-09] MEDS: SEROQUEL 25 MG PO ×3 (08:20→21:02)
[2024-07-09] MEDS: OCUVITE SOFTGEL 1 CAP PO (08:20)
[2024-07-09] MEDS: PROTONIX IV 40 MG IV (08:20)
[2024-07-09] MEDS: FLOMAX 0.4 MG PO (08:20)
[2024-07-09] MEDS: DESENEX/MITRAZOL/ZEASORB 1 APPLIC TOPICAL ×2 (08:21→21:01)
[2024-07-09] MEDS: HEPARIN 5000 UNITS SC ×2 (08:21→21:02)
[2024-07-09] MEDS: NON-FORMULARY ITEM 75 MG PO (08:22)
--- NOTE | 2024-07-09 13:47 | W.PN.HOSP.TC ---
Today's Communication/Plan
-
transfer to [facility]
D/C after Phenobarb taper tomorrow
Assessment / Plan
Assessment / Plan
73yo F with PMHX of acohol abuse, urinary retention s/p spinal stimulator followed by , anxiety brought in with AMS and hypotension with UTI
A/P
#Hypotension with hypovolemic shock
most likely 2/2 dehydration with diarrhea
Initially on Pressors, latr on IVF only
Resolved
#Diarrhea
resolved
C,dif and norovirus neg
#Acute metabolic encephalopathy
Multifactorial: 2/2 dehydration, alcohol intake, UTI and multiple sedative meds
resolved
#UTI
ceftriaxone
Ucx - K.pneumonia sensitive to cephalosporins
#Alcohol abuse with withdrawal
Phenobarbital taper
Thiamine/folate
counselled on cessation
#Urinary retention
Urology consult: Rogers placed
FUrther f/u as outpatient
#chronic anemia
2/2 alcohol intake
#Anxiety/depression d/co
#Peripheral neuropathy
#HLD
cont home meds
#KEVIN
nort compliant with CPAP
Nocturnal O2 PRN
DVT ppx hep
Full code
I have spent at least 56min reviewing chart, test results, communication with family and direct patient care
Anticipated Discharge: Within 24 hours
Subjective/Interval History
-
Date of Service: July 09, 2024
Objective Data
-
Labs:
Laboratory Results
07/09/24
03:59
WBC 6.2
Hgb 10.3 L
Hct 31.2 L
Plt Count 202
Sodium 138
Potassium 3.6
Chloride 108 H
Carbon Dioxide 27
BUN 6 L
Creatinine 0.5 L
Glucose 119 H
Calcium 8.6
Vital Signs:
Vital Signs
Temp Pulse Resp BP Pulse Ox
98.2 F 58 18 124/65 94
07/09/24 11:14 07/09/24 11:00 07/09/24 11:00 07/09/24 11:00 07/09/24 13:43
I&O
07/08/24 07/09/24 07/10/24
06:59 06:59 06:59
Intake Total 4000 / 4000
Output Total 1000 / 1000 550 / 550 750 / 750
Balance 3000 / 3000 -550 / -550 -750 / -750
Review of Systems
-
History Source: Patient
All other systems: Reviewed and negative
Physical Exam
-
General: Well Developed
HEENT: Normocephalic and Atraumatic
Respiratory: Clear to Auscultation
Cardiac: Regular Rhythm
GI: Soft
Musculoskeletal: No Clubbing, No Cyanosis and No Edema
Neuro: Awake, Alert, Oriented and AO x 3
Psych: Calm
--- NOTE | 2024-07-09 16:48 | PTCARENOTE ---
Assumed care of pt from harness and bag inspector RN. Pt AAOx3. Confused & forgetful at times. NSR on hospital monitor. VSS. Rogers placed today by Urology at bedside for acute urinary retention. Assessment documented. Pt resting in bed with call griffith in reach.
Family at bedside.
[2024-07-09] MEDS: LIPITOR 20 MG PO (21:02)
[2024-07-09] MEDS: MELATONIN 5 MG PO (21:02)
--- NOTE | 2024-07-09 21:39 | PTCARENOTE ---
assumed care of patient from previous RN. Patient is Aox3 but can be confused at and is forgetful. NSR on monitor. 3L O2 overnight. Rogers placed today, draining clear pale urine. Patient resting in bed with call griffith in reach.
[2024-07-10] VITALS (19 sets, daily range): BP systolic 96–149; BP diastolic 51–102; PULSE 69; O2SAT 95; BMI 33.0
[2024-07-10] MEDS: NSS 1000 IV ×2 (01:17→12:45)
[2024-07-10] MEDS: STERILE WATER FOR INJECTION 10 ML IV (05:19)
[2024-07-10] MEDS: ROCEPHIN 1000 MG IV (05:19)
[2024-07-10] MEDS: VITAMIN B1 100 MG PO ×2 (08:34→21:52)
[2024-07-10] MEDS: FLOMAX 0.4 MG PO (08:34)
[2024-07-10] MEDS: DESENEX/MITRAZOL/ZEASORB 1 APPLIC TOPICAL ×2 (08:34→21:48)
[2024-07-10] MEDS: XANAX 2 MG PO ×3 (08:35→23:22)
[2024-07-10] MEDS: LUMINAL 32.4 MG PO (08:35)
[2024-07-10] MEDS: PROTONIX 40 MG PO (08:35)
[2024-07-10] MEDS: OCUVITE SOFTGEL 1 CAP PO (08:35)
[2024-07-10] MEDS: FOLVITE 1 MG PO (08:35)
[2024-07-10] MEDS: SEROQUEL 25 MG PO ×3 (08:35→21:50)
[2024-07-10] MEDS: NON-FORMULARY ITEM 75 MG PO (08:35)
[2024-07-10] MEDS: NEURONTIN 100 MG PO ×3 (08:35→21:50)
[2024-07-10] MEDS: HEPARIN 5000 UNITS SC ×2 (08:35→21:49)
--- NOTE | 2024-07-10 12:37 | W.PN.HOSP.TC ---
Today's Communication/Plan
-
Significant desaturation overnight, needs 3+ L NC - due to KEVIN
Nocturnal O2 study ordered as CM needs it for home O2
Assessment / Plan
Assessment / Plan
73yo F with PMHX of acohol abuse, urinary retention s/p spinal stimulator followed by , anxiety brought in with AMS and hypotension with UTI. Improved. Found significant hypoxia at night 2/2 KEVIN - pending nocturnal study and home O2 Rx
A/P
#Hypotension with hypovolemic shock
most likely 2/2 dehydration with diarrhea
Initially on Pressors, latr on IVF only
Resolved
#Diarrhea
resolved
C,dif and norovirus neg
#Acute metabolic encephalopathy
Multifactorial: 2/2 dehydration, alcohol intake, UTI and multiple sedative meds
resolved
#UTI
ceftriaxone
Ucx - K.pneumonia sensitive to cephalosporins
#Alcohol abuse with withdrawal
Phenobarbital taper completed
Thiamine/folate
counselled on cessation
#Urinary retention
Urology consult: Rogers placed
FUrther f/u as outpatient
#chronic anemia
2/2 alcohol intake
follow H&H
No over bleeding
#Anxiety/depression d/co
#Peripheral neuropathy
#HLD
cont home meds
#KEVIN with nocturnal hypoxia
Nocturnal O2 assessment for CM to start O2
nort compliant with CPAP
Nocturnal O2 PRN
DVT ppx hep
Full code
I have spent at least 56min reviewing chart, test results, communication with family and direct patient care
Anticipated Discharge: Within 24 hours
Subjective/Interval History
-
Date of Service: July 10, 2024
Objective Data
-
Vital Signs:
Vital Signs
Temp Pulse Resp BP Pulse Ox
98.1 F 55 19 122/71 100
07/10/24 11:47 12/24/24 08:00 07/10/24 08:00 07/10/24 08:00 07/10/24 08:00
I&O
07/09/24 07/10/24 07/11/24
06:59 06:59 06:59
Intake Total 480 / 480
Output Total 550 / 550 1900 / 1900
Balance -550 / -550 -1420 / -1420
Review of Systems
-
History Source: Patient
All other systems: Reviewed and negative
Physical Exam
-
General: No Apparent Distress
HEENT: Normocephalic and Atraumatic
Respiratory: Clear to Auscultation
GI: Soft, Nontender and Nondistended
Genito-urinary: No Costovertebral Tender
Musculoskeletal: No Clubbing, No Cyanosis and No Edema
Neuro: Awake, Alert, Oriented and AO x 3
Psych: Calm
--- NOTE | 2024-07-10 13:22 | PTCARENOTE ---
Pt tolerating RA with sats in the mid 90's while awake throughout the day. Monitor then alarming with sats in the high 80's. This RN to bedside, pt awake and conversing with . Denies SOB. Placed on 1L NC and sats recovered to high 90's.
--- NOTE | 2024-07-10 15:49 | CM ---
Patient with Hx alcohol use disorder and chronic pain with Dx witnessed seizures at home. Tox screen + THC. Receiving IV Abx. PT 07/08 recommends home v outpatient PT. OT 07/05 recommends HH. Per nurse assessment; forgetful, MSAS 1.
Room air.
Home O2 Assessment today, per Samaria, RT; did not qualify for O2. 91% RA rest, 94% ambulating on RA.
Nocturnal O2 study ordered.
Met with patient; she is hoping to be discharged home soon, patient aware MD ordered nocturnal O2 study for tonight. IMM completed. Discussed PT/OT recommendations; she is agreeable to a referral for VN for SN/PT/OT with [facility].
Referral placed for [facility] VN & accepted in [facility].
Plan follow up tomorrow after Nocturnal O2 study for possible home O2 needs.
Plan probable d/c tomorrow with [facility] VN, possibly with O2.
--- NOTE | 2024-07-10 17:50 | PTCARENOTE ---
Pt transferred to [id number]
[2024-07-10] MEDS: MELATONIN 5 MG PO (21:50)
[2024-07-10] MEDS: LIPITOR 20 MG PO (21:50)
[2024-07-11 03:29] VITALS: BP 117/55
[2024-07-11] MEDS: STERILE WATER FOR INJECTION 10 ML IV (05:54)
[2024-07-11] MEDS: ROCEPHIN 1000 MG IV (05:54)
[2024-07-11] MEDS: HEPARIN 5000 UNITS SC ×2 (07:57→20:21)
[2024-07-11] MEDS: PROTONIX 40 MG PO (07:59)
[2024-07-11] MEDS: NEURONTIN 100 MG PO ×3 (07:59→21:28)
[2024-07-11] MEDS: FOLVITE 1 MG PO (07:59)
[2024-07-11] MEDS: OCUVITE SOFTGEL 1 CAP PO (07:59)
[2024-07-11] MEDS: SEROQUEL 25 MG PO ×3 (08:00→21:28)
[2024-07-11] MEDS: DESENEX/MITRAZOL/ZEASORB 1 APPLIC TOPICAL ×2 (08:00→20:27)
[2024-07-11] MEDS: FLOMAX 0.4 MG PO (08:00)
[2024-07-11] MEDS: VITAMIN B1 100 MG PO ×2 (08:00→20:21)
[2024-07-11] MEDS: XANAX 2 MG PO ×3 (08:00→21:30)
[2024-07-11] MEDS: NON-FORMULARY ITEM 75 MG PO (08:01)
[2024-07-11 08:16] LABS: Hematocrit 33.5 % (37.0-47.0); Hemoglobin 10.2 g/dL (12.0-16.0)
--- NOTE | 2024-07-11 08:59 | W.PN.URO.CBU ---
Today's Communication / Plan
-
teach soto leg bag care
Assessment / Plan
-
uti resolved but retention home with soto follow up Dr Meehan for voiding trial
Diagnosis
-
Date of Service: July 11, 2024
-
Patient Diagnosis:retntion of uroine
Post Op Day:
Subjective
-
cannot void but feels better dince atival
Objective
-
Vital Signs
Temp Pulse Resp BP Pulse Ox
97.6 F 56 14 117/55 98
07/11/24 03:29 07/11/24 03:29 07/11/24 03:29 07/11/24 03:29 07/11/24 03:29
Intake and Output
07/10/24 07/11/24 07/12/24
06:59 06:59 06:59
Intake Total 480 / 480 480 / 480
Output Total 1900 / 1900 1800 / 1800
Balance -1420 / -1420 -1320 / -1320
Intake:
Oral fluids 480 / 480 480 / 480
Output:
Urine, Soto 1900 / 1900 1800 / 1800
Laboratory Results
07/11/24 07:49
07/09/24 03:59
Review of Systems
-
: Difficulty Voiding
Physical Exam
-
General - well developed, well nourished, no acute distress
Chest - clear bilaterally
Abdomen - soft, non-tender, positive bowel sounds, no CVAT, no incisional pain or distention
Genitalia - normal
Rectal - normal
Skin - warm & dry with no rash
Neuro - AOx3, no motor deficits
Extremities - no clubbing, no cyanosis, no edema
Incision - clean, dry
Dressing - clean, dry, intact
Care Review
Data Reviewed
Discussed with: Nursing
CT Scan: Image Pers Reviewed
[2024-07-11 11:00] VITALS: BP 124/56
--- NOTE | 2024-07-11 11:03 | CM ---
Patient stable for discharge; met with patient; explained that Home Oxygen and equipment needs to be ordered; vendor options identified; patient has no preference; contacted [facility] via phone; Office is closed
Nocturnal O2 Testing results on the chart; CM will fax Oxygen orders and clinicals to Oxygen Vendor tomorrow morning
Plan: Discharge to home with Home Health services from [facility] and Home Oxygen
--- NOTE | 2024-07-11 11:36 | W.PN.HOSP.TC ---
Today's Communication/Plan
-
home nocturnal O2 delivery and d/c
Stop ceftriaxone after last dose
Assessment / Plan
Assessment / Plan
73yo F with PMHX of acohol abuse, urinary retention s/p spinal stimulator followed by , anxiety brought in with AMS and hypotension with UTI. Improved. Found significant hypoxia at night 2/2 KEVIN - pending nocturnal study and home O2 Rx
A/P
#Hypotension with hypovolemic shock
most likely 2/2 dehydration with diarrhea
Initially on Pressors, latr on IVF only
Resolved
#Diarrhea
resolved
C.diff and norovirus neg
#Acute metabolic encephalopathy
Multifactorial: 2/2 dehydration, alcohol intake, UTI and multiple sedative meds
resolved
#UTI
ceftriaxone - last day 07/11/24
Ucx - K.pneumonia sensitive to cephalosporins
#Alcohol abuse with withdrawal
Phenobarbital taper completed
Thiamine/folate
counselled on cessation
#Urinary retention
Urology consult: Rogers placed
Further f/u as outpatient - known to
#chronic anemia
2/2 alcohol intake
follow H&H
No over bleeding
#Anxiety/depression d/co
#Peripheral neuropathy
#HLD
cont home meds
#KEVIN with nocturnal hypoxia
Nocturnal O2 assessment for CM to start O2
nort compliant with CPAP
Nocturnal O2 PRN
Ambulatory O2 assessment - no need for oxygen when awake at rest and on ambulation
DVT ppx hep
Full code
I have spent at least 36min reviewing chart, test results, communication with family and direct patient care
Anticipated Discharge: Within 24 hours
Subjective/Interval History
-
Date of Service: July 11, 2024
Objective Data
-
Labs:
Laboratory Results
07/11/24
07:49
Hgb 10.2 L
Hct 33.5 L
Vital Signs:
Vital Signs
Temp Pulse Resp BP Pulse Ox
97.6 F 56 14 117/55 98
07/11/24 03:29 07/11/24 03:29 07/11/24 03:29 07/11/24 03:29 07/11/24 03:29
I&O
07/10/24 07/11/24 07/12/24
06:59 06:59 06:59
Intake Total 480 / 480 480 / 480
Output Total 1900 / 1900 1800 / 1800
Balance -1420 / -1420 -1320 / -1320
Review of Systems
-
History Source: Patient
All other systems: Reviewed and negative
Physical Exam
-
General: Comfortable
HEENT: Normocephalic
Respiratory: Clear to Auscultation
GI: Soft, Nontender and Nondistended
Neuro: Awake, Alert, Oriented and AO x 3
Psych: Calm
[2024-07-11 15:00] VITALS: BP 116/77
[2024-07-11 19:54] VITALS: BP 141/63
[2024-07-11] MEDS: LIPITOR 20 MG PO (21:28)
[2024-07-11] MEDS: MELATONIN 5 MG PO (21:28)
[2024-07-11 23:30] VITALS: BP 129/59
[2024-07-11] MEDS: TYLENOL 650 MG PO (23:53)
[2024-07-12 03:30] VITALS: BP 110/51
[2024-07-12 07:30] VITALS: BP 130/62
[2024-07-12] MEDS: DESENEX/MITRAZOL/ZEASORB 1 APPLIC TOPICAL (07:53)
[2024-07-12] MEDS: HEPARIN 5000 UNITS SC (08:00)
[2024-07-12] MEDS: PROTONIX 40 MG PO (08:01)
[2024-07-12] MEDS: FLOMAX 0.4 MG PO (08:01)
[2024-07-12] MEDS: XANAX 2 MG PO ×2 (08:01→16:08)
[2024-07-12] MEDS: SEROQUEL 25 MG PO ×2 (08:01→16:08)
[2024-07-12] MEDS: VITAMIN B1 100 MG PO (08:01)
[2024-07-12] MEDS: FOLVITE 1 MG PO (08:01)
[2024-07-12] MEDS: OCUVITE SOFTGEL 1 CAP PO (08:02)
[2024-07-12] MEDS: NEURONTIN 100 MG PO ×2 (08:02→16:08)
[2024-07-12] MEDS: NON-FORMULARY ITEM 1 MG PO (08:03)
--- NOTE | 2024-07-12 09:45 | CM ---
Addendum entered by Misty Butcher 07/12/24 12:17:
Patient seen, discussed plan for discharge today, patient on phone with at time, will provide transportation home. CM discussed [facility] will call patient to schedule delivery. IMM verbally reviewed, provided with copy, placed in chart.
Original Note:
CM reviewed chart, Nocturnal O2 faxed to Kathryn at [facility]- will call patient regarding delivery, will deliver to patients home. CM will continue to follow for all discharge planning needs.
Plan; home with [facility], nocturnal O2
Sujey
--- NOTE | 2024-07-12 10:23 | W.PN.HOSP.TC ---
Today's Communication/Plan
-
mild wheezing - add symbicort, outpatient pulm for PFT
CM for home O2, when arranged - DC
Assessment / Plan
Assessment / Plan
73yo F with PMHX of acohol abuse, urinary retention s/p spinal stimulator followed by , anxiety brought in with AMS and hypotension with UTI. Improved. Found significant hypoxia at night 2/2 KEVIN - pending nocturnal study and home O2 Rx
A/P
#Hypotension with hypovolemic shock
most likely 2/2 dehydration with diarrhea
Initially on Pressors, latr on IVF only
Resolved
#Diarrhea
resolved
C.diff and norovirus neg
#Acute metabolic encephalopathy
Multifactorial: 2/2 dehydration, alcohol intake, UTI and multiple sedative meds
resolved
#UTI
ceftriaxone - last day 07/11/24
Ucx - K.pneumonia sensitive to cephalosporins
#Alcohol abuse with withdrawal
Phenobarbital taper completed
Thiamine/folate
counselled on cessation
#Urinary retention
Urology consult: Rogers placed
Further f/u as outpatient - known to
#chronic anemia
2/2 alcohol intake
follow H&H
No over bleeding
#Anxiety/depression d/co
#Peripheral neuropathy
#HLD
cont home meds
#KEVIN with COPD component and with nocturnal hypoxia
Nocturnal O2 assessment for CM to start O2
nort compliant with CPAP
Nocturnal O2 PRN
Ambulatory O2 assessment - no need for oxygen when awake at rest and on ambulation
Albuterol
DVT ppx hep
Full code
I have spent at least 36min reviewing chart, test results, communication with family and direct patient care
Anticipated Discharge: Within 24 hours
Subjective/Interval History
-
Date of Service: July 12, 2024
Objective Data
-
Vital Signs:
Vital Signs
Temp Pulse Resp BP Pulse Ox
97.6 F 58 18 130/62 99
07/12/24 07:30 07/12/24 07:30 07/12/24 07:30 07/12/24 07:30 07/12/24 07:30
I&O
07/11/24 07/12/24 07/13/24
06:59 06:59 06:59
Intake Total 480 / 480 1140 / 1140 480 / 480
Output Total 1800 / 1800 2175 / 2175 275 / 275
Balance -1320 / -1320 -1035 / -1035 205 / 205
Review of Systems
-
History Source: Patient
All other systems: Reviewed and negative
Physical Exam
-
General: No Apparent Distress
HEENT: Normocephalic
Respiratory: Wheezes
GI: Soft, Nontender and Nondistended
Neuro: Awake, Alert, Oriented and AO x 3
Psych: Calm
--- NOTE | 2024-07-12 11:01 | W.PN.URO.CBU ---
Today's Communication / Plan
-
teach ot soto leg bag care
Assessment / Plan
-
uti resolved but retention home with soto follow up Dr Meehan for voiding trial
Diagnosis
-
Date of Service: July 12, 2024
-
Patient Diagnosis:
Post Op Day:
Patient Diagnosis:retntion of uroine
Post Op Day:
Subjective
-
cannot void
Objective
-
Vital Signs
Temp Pulse Resp BP Pulse Ox
97.6 F 58 18 130/62 99
07/12/24 07:30 07/12/24 07:30 07/12/24 07:30 07/12/24 07:30 07/12/24 07:30
Intake and Output
07/11/24 07/12/24 07/13/24
06:59 06:59 06:59
Intake Total 480 / 480 1140 / 1140 480 / 480
Output Total 1800 / 1800 2175 / 2175 275 / 275
Balance -1320 / -1320 -1035 / -1035 205 / 205
Intake:
Oral fluids 480 / 480 1140 / 1140 480 / 480
Output:
Urine, Soto 1800 / 1800 2175 / 2175 275 / 275
Laboratory Results
07/11/24 07:49
07/09/24 03:59
Review of Systems
-
: Difficulty Voiding
Physical Exam
-
General - well developed, well nourished, no acute distress
Chest - clear bilaterally
Abdomen - soft, non-tender, positive bowel sounds, no CVAT, no incisional pain or distention
Genitalia - normal
Rectal - normal
Skin - warm & dry with no rash
Neuro - AOx3, no motor deficits
Extremities - no clubbing, no cyanosis, no edema
Incision - clean, dry
Dressing - clean, dry, intact
Care Review
Data Reviewed
Discussed with: Hospitalist
--- NOTE | 2024-07-12 11:16 | W.DCSUMMARY ---
Discharge Summary
Discharge Data
Date of Admission: 07/04/24
Date of Discharge: 07/12/24
-
Pending Results: No
Hospital Course
73yo F with PMHX of acohol abuse, urinary retention s/p spinal stimulator followed by , anxiety brought in with AMS and hypotension with UTI. Improved. Found significant hypoxia at night 2/2 KEVIN and COPD, CM arranged home O2. Developed
acute urinary retention, so soto was placed and patient will continue to follow with her established urologist. Mentation back to normal, normotensive, Abx completed. Medically stable for d/c home with oxygen and VN. Recommended outpatient
last scourer for PFT and sleep study. Strict alcohol abstinence advised
I have spent at least 36min reviewing chart, test results, communication with family and direct patient care
Patient was managed for
#Hypotension with hypovolemic shock
#Diarrhea
#Acute metabolic encephalopathy
#UTI
#Alcohol abuse with withdrawal
#Urinary retention
#chronic anemia
#Anxiety/depression d/co
#Peripheral neuropathy
#HLD
#KEVIN with COPD component and with nocturnal hypoxia
Discharge Plan
-
Patient Disposition: Home (Routine Discharge)
Discharge Diagnosis/Procedures: Alcohol withdrawal
Diet: Regular
Activity: As tolerated
Referrals:
Chris Fishman MD [Active] - (please drew Dr Darian Meehan [phone] Urology and let her be aware of soto and let her make plan for voiding trial in coming weeks )
Franklin Fernandez MD [Active] - in four to six weeks (for PFT and sleep study)
UNKNOWN - PT NOT,INTERVIEWE [Family Provider] -
Prescriptions:
New
pantoprazole 40 mg Tablet,Delayed Release (Dr/Ec)
40 mg PO DAILY Qty: 30 0RF
folic acid 1 mg Tablet
1 mg PO DAILY Qty: 30 0RF
budesonide-formoterol [Symbicort] 160-4.5 mcg/actuation Hfa Aerosol Inhaler
2 puff inhalation R BID Qty: 10.2 0RF
melatonin 5 mg Tablet
5 mg PO HS Qty: 30 0RF
thiamine HCl (vitamin B1) 100 mg Tablet
100 mg PO DAILY Qty: 30 0RF
Continued
quetiapine 25 mg Tablet
25 mg PO TID
tamsulosin 0.4 mg Capsule
0.4 mg PO DAILY
alprazolam 2 mg Tablet
2 mg PO TID
gabapentin 100 mg Capsule
100 mg PO TID
zolpidem 10 mg Tablet
10 mg PO HSPRN PRN (Reason: SLEEP)
Trintellix 20 mg Tablet
20 mg PO DAILY
PreserVision AREDS-2 250-90-40-1 mg Capsule
1 tab PO DAILY
Gemtesa 75 mg Tablet
75 mg PO DAILY
simvastatin 40 mg Tablet
40 mg PO HS
trazodone 100 mg Tablet
100 mg PO HS
Discharge Orders:
Discharge Patient (As Directed); Ordered 07/12/24
Ordered By: Estuardo Singletary
Discharge Date and Time
Print Language: [id number]
[2024-07-12] MEDS: SYMBICORT 160/4.5 MCG INHALER 2 PUFF INH (11:33)
[2024-07-12 11:35] VITALS: BP 133/64
[2024-07-12 15:40] VITALS: BP 158/79
--- NOTE | 2024-07-14 09:51 | CM ---
Retrieved message from son Thiago Rushing that his mom was dc 07/12/24. She has a Rogers and new nocturnal oxygen and he said [facility] called to say they can not see her till Tuesday or Tuesday next week . Son feels a visit is needed before then.
called [phone] spoke with financial institution treasurer [facility] who said cases are filled till next week . Requested she call son and evaluate if she can be seen any earlier. Son number Thiago Rushing [phone] given to financial institution treasurer nurse to follow up.
== END 2024-07-12 16:39 | disposition home health service (06) | DRG 896 ==
LOC: 4 WEST ACU 05:06
PROVIDERS: Hospitalist; Nurse Practitioner Gerontology; ADMITTING PHYSICIAN Hospitalist; ATTENDING PHYSICIAN Internal Medicine; EMERGENCY PHYSICIAN Student in an Organized Health Care Education/Training Program; OTHER PHYSICIAN Specialist
DX: F10.139 Alcohol abuse with withdrawal, unspecified (principal); G93.41 Metabolic encephalopathy; R57.1 Hypovolemic shock; N39.0 Urinary tract infection, site not specified; F41.9 Anxiety disorder, unspecified; F32.A Depression, unspecified; E87.6 Hypokalemia; E78.5 Hyperlipidemia, unspecified; G43.909 Migraine, unspecified, not intractable, without status migrainosus; G47.33 Obstructive sleep apnea (adult) (pediatric); G62.9 Polyneuropathy, unspecified; G89.4 Chronic pain syndrome; R56.9 Unspecified convulsions; R33.8 Other retention of urine; I95.9 Hypotension, unspecified; E86.1 Hypovolemia; E86.0 Dehydration; R19.7 Diarrhea, unspecified; D64.9 Anemia, unspecified; N32.81 Overactive bladder; J44.9 Chronic obstructive pulmonary disease, unspecified; R09.02 Hypoxemia; B96.1 Klebsiella pneumoniae [K. pneumoniae] as the cause of diseases classified elsewhere; Z11.52 Encounter for screening for COVID-19; Z96.82 Presence of neurostimulator; Z79.51 Long term (current) use of inhaled steroids; Z79.899 Other long term (current) drug therapy
CPT/HCPCS: 70450; 70486; 70496; 70498; 80048; 80053; 80076; 80143; 80179; 80306; 81003; 81015; 82077; 82248; 82805; 83605; 83735; 84100; 84443; 84484; 85014; 85018; 85025; 85610; 85652; 85730; 86803; 87040; 87070; 87077; 87086; 87186; 87324; 87449; 87502; 87798; 87811; 93005; 94640; 94761; 94762; 97116; 97163; 97167; 97530; Q9967

== ENCOUNTER → 2024-08-29 11:39 | Outpatient (REF) | payer MEDICARE, BC, SELFPAY ==
[2024-08-29 16:44] LABS: % Basophils 1.2 % (0-2); % Eosinophils 4.8 % (0-6); % Immature Granulocytes 0.2 % (0-0.5); % Lymphocytes 34.7 % (20.5-51.1); % Monocytes 9.4 % (1.7-9.3); % Neutrophils 49.7 % (42.2-75.2); Absolute Basophils 0.1 10^3/uL (0-0.2); Absolute Eosinophils 0.3 10^3/uL (0-0.7); Absolute Lymphocytes 1.8 10^3/uL (1.2-3.4); Absolute Monocytes 0.5 10^3/uL (0.1-0.6); Absolute Neutrophils 2.6 10^3/uL (1.4-6.5); Hematocrit 36.7 % (37.0-47.0); Hemoglobin 11.7 g/dL (12.0-16.0); Mean Corp Hgb Conc. 31.9 g/dL (33.0-37.0); Mean Corpuscular Hgb 29.3 pg (27.0-31.0); Nucleated Red Blood Cells % 0 %; Platelet Count 209 10^3/uL (130-400); Red Blood Cell Count 3.99 10^6/uL (4.20-5.40); Red Cell Dist. Width 14.2 % (11.5-14.5); White Blood Cell Count 5.2 10^3/uL (4.8-10.8)
[2024-08-29 16:53] LABS: ALT (SGPT) 16 U/L (0-35); AST (SGOT) 24 U/L (14-36); Albumin 4.2 g/dl (3.5-5.0); Alkaline Phosphatase 75 U/L (38-126); Blood Urea Nitrogen 10 mg/dl (7-17); Calcium 9.2 mg/dl (8.4-10.2); Carbon Dioxide 31 mmol/L (22-30); Chloride 100 mmol/L (98-107); Glucose 130 mg/dl (70-99); HDL Cholesterol 52 mg/dl; LDL Cholesterol, Calculated 48 mg/dl; Potassium 3.7 mmol/L (3.5-5.1); Sodium 138 mmol/L (135-145); Total Bilirubin 0.6 mg/dl (0.2-1.3); Total Cholesterol 123 mg/dl (50-199); Total Protein 6.6 g/dl (6.3-8.2); Triglyceride 119 mg/dl (10-149); Very Low Density Lipoprotein 23 mg/dl (0-30); eGFR > 60.00
[2024-08-29 17:21] LABS: TSH 2.61 uIU/ml (0.47-4.68)
[2024-08-30 09:43] LABS: Glycohemoglobin (HgbA1c) 6.1 % (4.0-5.6)
== END ==
LOC: HWLAB 11:39
PROVIDERS: ATTENDING PHYSICIAN Internal Medicine
DX: N39.46 Mixed incontinence (principal); E78.5 Hyperlipidemia, unspecified; F10.29 Alcohol dependence with unspecified alcohol-induced disorder; F13.20 Sedative, hypnotic or anxiolytic dependence, uncomplicated; F32.9 Major depressive disorder, single episode, unspecified; K76.0 Fatty (change of) liver, not elsewhere classified; R73.01 Impaired fasting glucose
CPT/HCPCS: 36415; 80053; 80061; 83036; 84443; 85025

== ENCOUNTER → 2024-10-31 13:53 | Outpatient (REF) | payer MEDICARE, BC, SELFPAY | LOC: HWRAD 13:53 | PROVIDERS: ATTENDING PHYSICIAN Urology; FAMILY PHYSICIAN Internal Medicine | DX: R33.9 Retention of urine, unspecified (principal) | CPT/HCPCS: 76770 ==